=== PATIENT | female | born 1950 | race Caucasian/White ===

== ENCOUNTER 2016-09-06 12:35 | Inpatient (IN) | payer MEDICARE, OTHER ==
[2016-09-06] VITALS (8 sets, daily range): BP systolic 131–141; BP diastolic 69–75; PULSE 70–80; RESP 16–20; TEMP 96.7; O2SAT 94–98; Ht 160 cm; Wt 88.8 kg
[~2016-09-06] VITALS: Ht 160 cm; Wt 88.8 kg
[~2016-09-06 12:35] MED LIST: CITA20TA17 PO; DIPH25TA54 PO; ESOM20CA PO; HYDR-2164 PO; LEVO50TA72 PO; LOSA50TA17 PO; METF500T4 PO
--- OUTSIDE RECORDS SUMMARY | 2016-09-06 12:39 | XMS REPORT | Referral Summary ---
Author Author [facility] [place], [facility] Organization [facility] Address Unknown Phone Unavailable Care Team Providers Care Orthotic/Prosthetic Practitioner Name Role Phone Arturo Linda Primary Care Physician [phone] Encounter VC Date(s): 10/06/15 - 10/06/15 [facility] [place] [address] [place] [address]- Discharge Diagnosis: Benign essential hypertension Discharge Diagnosis: Hypothyroidism Discharge Diagnosis: Gastroesophageal reflux disease Discharge Diagnosis: Abdominal pain Discharge Diagnosis: Type 2 diabetes mellitus Discharge Disposition: 01-Home or Self Care Attending Physician: Elder Linda MD Admitting Physician: Elder Linda MD Vital Signs Most recent to 1 oldest [Reference Range]: Temperature Tympanic 36.4 degC [36.6-38.1 degC] *LOW* (10/06/15 8:54 AM) Peripheral Pulse 76 bpm Rate [60-100 bpm] (10/06/15 8:54 AM) Respiratory Rate 16 br/min [14-20 br/min] (10/06/15 8:54 AM) Blood Pressure 130/84 mmHg [90-140/60-90 mmHg] (10/06/15 8:54 AM) Problem List Condition Effective Dates Status Health Status Informant Anxiety state Active (finding)(Confirmed) Anxiety(Confirmed) Resolved Appendectomy(Confirm Resolved ed) Benign essential Active hypertension (disorder)(Confirmed ) Left Breast Biopsy- Resolved benign(Confirmed) Cardiac Resolved catheterization- normal(Confirmed) Chicken Resolved pox(Confirmed) Colonoscopy- Resolved normal(Confirmed) Depression(Confirmed Resolved ) Gastro esophageal Resolved reflux(Confirmed) Gastroesophageal Active reflux disease (disorder)(Confirmed ) GERD Resolved (gastroesophageal reflux disease)(Confirmed) High Resolved cholesterol(Confirme d) Hypertension(Confirm Resolved ed) Hypothyroidism Active (disorder)(Confirmed ) Hypothyroidism(Confi Resolved rmed) Fatty Infiltration Resolved of liver(Confirmed) Lumpectomy left Resolved breast(Confirmed) Macular Resolved degeneration(Confirm ed) Uterine 2000 Active cancer(Confirmed) Mild obstructive Active sleep apnea(Confirmed) ADRIANO BSO - Total Resolved abdominal hysterectomy and bilateral salpingo-oophorectom y(Confirmed) Tonsillectomy(Confir Resolved med) Allergies, Adverse Reactions, Alerts Substance Reaction Severity Status acetaminophen vomiting Active celecoxib Active diazepam Active HYDROcodone vomiting Active penicillin Active tetracycline Active Medications citalopram 20 mg oral tablet See Instructions, TAKE 1 TABLET DAILY Fax to [facility], # 90 tabs, 1 Refill(s ), [facility], TAKE 1 TABLET DAILY; Fax to [facility] Start Date: 09/16/15 Status: Ordered [facility] oral capsule caps, Oral, Daily, 0 Refill(s) Start Date: 10/06/15 Status: Ordered free style lite strips free style lite strips, See Instructions, check Blood sugars per doctor's orders. Fax to [facility] Dx: 250.00, # 1 boxes, 0 Refill(s) Start Date: 01/31/15 Status: Ordered glimepiride 4 mg oral tablet 4 mg 1 tabs, Oral, Daily, # 30 tabs, 4 Refill(s), [facility] , 1 tabs Oral Daily Start Date: 10/06/15 Status: Ordered hydrochlorothiazide 25 mg oral tablet 25 mg 1 tabs, Oral, Daily, # 90 tabs, 0 Refill(s), [facility]: [facility] , 1 tabs Oral Daily Start Date: 08/26/15 Status: Ordered levothyroxine 50 mcg (0.05 mg) oral tablet 50 mcg 1 tabs, Oral, Daily, # 90 tabs, 0 Refill(s), [facility], 1 tabs Oral Daily Start Date: 08/26/15 Status: Ordered losartan 50 mg oral tablet 50 mg 1 tabs, Oral, Daily, Fax to [facility], # 90 tabs, 0 Refill(s) Start Date: 07/08/15 Status: Ordered NexIUM 20 mg oral delayed release capsule 20 mg 1 caps, Oral, BID, # 60 caps, 3 Refill(s) Start Date: 08/20/15 Status: Ordered ZyrTEC 10 mg, Oral, Daily, 0 Refill(s) Start Date: 04/02/14 Status: Ordered Results Chemistry Most recent to 1 oldest [Reference Range]: Sodium Lvl [135-144 140 mEq/L mEq/L] (10/06/15 9:35 AM) Potassium Lvl 4.3 mEq/L [3.5-5.2 mEq/L] (10/06/15 9:35 AM) Chloride [99-111 104 mEq/L mEq/L] (10/06/15 9:35 AM) CO2 [22-31 mEq/L] 29 mEq/L (10/06/15 9:35 AM) AGAP [3-20] 7 (10/06/15 9:35 AM) BUN [10-20 mg/dL] 19 mg/dL (10/06/15 9:35 AM) Glucose Lvl [70-99 161 mg/dL mg/dL] *HI* (10/06/15 9:35 AM) Creatinine Lvl 1.01 mg/dL [0.57-1.11 mg/dL] (10/06/15 9:35 AM) eGFR [>60 mL/min] 55 mL/min 1 *ABN* (10/06/15 9:35 AM) Calcium Lvl 9.3 mg/dL [8.9-10.5 mg/dL] (10/06/15 9:35 AM) Albumin Lvl [3.4-4.8 4.4 gm/dL gm/dL] (10/06/15 9:35 AM) Total Protein 6.5 gm/dL [6.2-8.1 gm/dL] (10/06/15 9:35 AM) Globulin [1.8-4.0 2.1 gm/dL gm/dL] (10/06/15 9:35 AM) ALT [0-55 U/L] 58 U/L *HI* (10/06/15 9:35 AM) AST [5-34 U/L] 35 U/L *HI* (10/06/15 9:35 AM) Alk Phos [40-150 95 U/L U/L] (10/06/15 9:35 AM) Bili Total [0.2-1.2 0.6 mg/dL mg/dL] (10/06/15 9:35 AM) Chol [0-199 mg/dL] 204 mg/dL *HI* (10/06/15 9:35 AM) Trig [0-149 mg/dL] 213 mg/dL *HI* (10/06/15 9:35 AM) HDL [40-84 mg/dL] 36 mg/dL *LOW* (10/06/15 9:35 AM) LDL [0-130 mg/dL] 125 mg/dL (10/06/15 9:35 AM) VLDL Cholesterol 43 mg/dL [0-28 mg/dL] *HI* (10/06/15 9:35 AM) Cardiac Risk 5.7 [0.0-5.0] *HI* (10/06/15 9:35 AM) TSH with Reflex Free 2.05 T4 [0.35-4.94] (10/06/15 9:35 AM) Hgb A1c [4.1-5.6 %] 6.8 % *HI* (10/06/15 9:35 AM) eAvg Glucose 148.5 mg/dL (10/06/15 9:35 AM) 1Result Comment: Multiply eGFR results by 1.21 for race. Immunizations No data available for this section Procedures Procedure Date Related Diagnosis Body Site Colonoscopic polypectomy1 01/21/14 Biopsy of breast 06/20/01 ADRIANO BSO - Total abdominal hysterectomy and 1999 bilateral salpingo-oophorectomy2 Lumpectomy of Left breast, not ca 06/20/90 Appendectomy Cardiac catheterization Hysterectomy Tonsillectomy 1Tubular adenoma, minimal diverticulosis, father with colon cancer, repeat in 5 years 2uterine cancer Social History Social History Type Response Smoking Status Never smoker Assessment and Plan Extracted from: Title: Office Visit Note Author: Elder Linda MD Date: 10/06/15 Assessment/Plan Abdominal pain He remains somewhat unclear where this is coming from. It may well ultimately be an irritable bowel type problem. I am concerned that metformin may be contributing to some of her abdominal distress and loose bowels. We switched her to an extended release formula andthat hasn't seemed to make much difference. I've recommendeddiscontinuing metformin altogether and beginning glimepiride 4 mg by mouth every morning to see if that makes any difference in her abdominalcomplaints. She'llkeep me posted on how that'sworking Ordered: Comprehensive Metabolic Panel Office Visit Level 4 Est 26579 Benign essential hypertension Blood pressures well-controlled no change in current treatment is recommended. Ordered: Comprehensive Metabolic Panel Lipid Panel Office Visit Level 4 Est 19893 Gastroesophageal reflux disease Reflux seems to be controlled and not a part of her abdominal discomfort no change in current treatment is recommended. Ordered: Office Visit Level 4 Est 10795 Hypothyroidism It's been a year since her last TSH one is ordered today. Ordered: Office Visit Level 4 Est 37847 TSH with Reflex Free T4 Type 2 diabetes mellitus, Type 2 diabetes mellitus without complications I'm making changes as outlined above with discontinuing metformin and beginning the [place]. Warned about hypoglycemia with this medication change. Laboratory studies ordered. She'll keep me posted on how she's doing. Three-month follow-up encouraged. Report card reviewed and provided today. Ordered: Comprehensive Metabolic Panel Hemoglobin A1c Lipid Panel Office Visit Level 4 Est 83787 Orders: glimepiride, 4 mg 1 tabs, Oral, Daily, # 30 tabs, 4 Refill(s), [facility], 1 tabs Oral Daily
--- OUTSIDE RECORDS SUMMARY | 2016-09-06 12:39 | XMS REPORT | Referral Summary ---
Author Author [facility] [place], [facility] Organization [facility] Address Unknown Phone Unavailable Care Team Providers Care Program Director Cable Television Name Role Phone Arturo Linda Primary Care Physician [phone] Encounter Date(s): 01/07/16 - 01/07/16 [facility] [place], [address] [place] [address]- Discharge Diagnosis: Benign essential hypertension Discharge Diagnosis: Gastroesophageal reflux disease Discharge Diagnosis: Diabetes mellitus, type 2 Discharge Diagnosis: Anxiety state (finding) Discharge Diagnosis: Hypothyroidism Discharge Disposition: 01-Home or Self Care Attending Physician: Elder Linda MD Admitting Physician: Elder Linda MD Vital Signs Most recent to 1 oldest [Reference Range]: Temperature Tympanic 36.6 degC [36.6-38.1 degC] (01/07/16 8:29 AM) Peripheral Pulse 68 bpm Rate [60-100 bpm] (01/07/16 8:29 AM) Respiratory Rate 16 br/min [14-20 br/min] (01/07/16 8:29 AM) Blood Pressure 116/76 mmHg [90-140/60-90 mmHg] (01/07/16 8:29 AM) Problem List Condition Effective Dates Status [...] vomiting Active penicillin Active tetracycline Active Medications Bentyl 20 mg oral tablet 20 mg 1 tabs, Oral, BID, # 180 tabs, 1 Refill(s), [facility] , 1 tabs Oral BID Start Date: 12/02/15 Status: Ordered citalopram 20 mg oral tablet See Instructions, TAKE 1 TABLET DAILY Fax to [facility], # 90 tabs, 1 Refill(s ), [facility], TAKE 1 TABLET DAILY; Fax to [facility] Start Date: 09/16/15 Status: Ordered [facility] oral capsule caps, Oral, Daily, 0 Refill(s) [...] 1 tabs, Oral, Daily, # 90 tabs, 1 Refill(s), [facility] , 1 tabs Oral Daily Start Date: 12/05/15 Status: Ordered levothyroxine 50 mcg (0.05 mg) oral tablet 50 mcg 1 tabs, Oral, Daily, # 90 tabs, 3 Refill(s), [facility]: [facility], 1 tabs Oral Daily Start Date: 12/12/15 Status: Ordered losartan 50 mg oral tablet 50 mg 1 tabs, Oral, Daily, # 90 tabs, 2 Refill(s), [facility]: [facility] , 1 tabs Oral Daily Start Date: 10/07/15 Status: Ordered NexIUM 20 mg oral delayed release capsule 20 mg 1 caps, Oral, BID, # 60 caps, 3 Refill(s) Start Date: 08/20/15 Status: Ordered ZyrTEC 10 mg, Oral, Daily, 0 Refill(s) Start Date: 04/02/14 Status: Ordered Results Chemistry Most recent to 1 oldest [Reference Range]: Hgb A1c [4.1-5.6 %] 7.1 % *HI* (01/07/16 9:00 AM) eAvg Glucose 157.1 mg/dL (01/07/16 9:00 AM) Immunizations Vaccine Date Refusal Reason tetanus/diphth/pertuss (Tdap) adult/adol 06/20/10 influenza virus vaccine, inactivated 03/20/15 Procedures Procedure Date Related Diagnosis Body Site Esophagogastroduodenoscopy and biopsy1 10/03/15 Colonoscopic polypectomy2 01/21/14 Biopsy of breast 06/20/01 ADRIANO BSO - Total abdominal hysterectomy and 1999 bilateral salpingo-oophorectomy3 Lumpectomy of Left breast, not ca 06/20/90 Appendectomy Cardiac catheterization Hysterectomy Tonsillectomy 1no cancer, no h pylori, no abnormality noted to explain pts pain. 2Tubular adenoma, minimal diverticulosis, father with colon cancer, repeat in 5 years 3uterine cancer Social History Social History Type Response Smoking Status Never smoker Assessment and Plan Extracted from: Title: Office Visit Note Author: Elder Linda MD Date: 01/07/16 Assessment/Plan 1.Benign essential hypertension Blood pressures well-controlled. Medications and treatments reviewed no changes are recommended at this time. Report card reviewed and provided. Follow-up in 6 months. Ordered: Office Visit Level 4 Est 38319 2.Gastroesophageal reflux disease Overall this seems to be improved with the treatments Dr. Drew is recommended. No changes are recommended at this time. Ordered: Office Visit Level 4 Est 18973 3.Diabetes mellitus, type 2 Sugars are running higher but she's not following her diet carefully. We discussed the importance of dietary control. Continue current medications for the time being we will check a hemoglobin A1c today. Will let her know what that shows. Plan 6 month follow-up unless further problems or concerns occur. Ordered: Hemoglobin A1c Office Visit Level 4 Est 75437 4.Anxiety state (finding) Discussed the importance of dealing with anxiety and a healthy way as opposed to eatingas a way oftreating her anxiety. Ordered: Office Visit Level 4 Est 03309 5.Hypothyroidism Chronic stable most recent TSH 3 months ago and was doing well. No change in current treatment. Ordered: Office Visit Level 4 Est 98243
--- OUTSIDE RECORDS SUMMARY | 2016-09-06 12:40 | XMS REPORT | Referral Summary ---
Author Organization Unknown Address Unknown Phone Unavailable Care Team Providers Care Ordnance Corps Officer Name Role Phone Cordelia Ramey Primary Care Physician [phone] Encounter VC Date(s): 08/01/14 - 08/01/14 [facility] [place] [address] [facility] [address] [place], [place] [address] Discharge Diagnosis: Mild obstructive sleep apnea Discharge Disposition: Home or Self Care Attending Physician: Kyara Wilkerson Admitting Physician: Kyara Wilkerson Vital Signs Most recent to 1 oldest [Reference Range]: Peripheral Pulse 75 bpm Rate [60-100 bpm] (08/01/14 8:49 AM) Blood Pressure 118/68 mmHg [90-140/60-90 mmHg] (08/01/14 8:49 AM) Most recent to 1 oldest [Reference Range]: SpO2 94 % (08/01/14 8:49 AM) Problem List Condition Effective Dates Status Health Status Informant Anxiety(Confirmed) Resolved Anxiety state Active (finding)(Confirmed) Appendectomy(Confirm Resolved ed) Benign essential Active hypertension [...] left Resolved breast(Confirmed) Macular Resolved degeneration(Confirm ed) Mild obstructive Active sleep apnea(Confirmed) ADRIANO BSO - Total Resolved abdominal hysterectomy and bilateral salpingo-oophorectom y(Confirmed) Tonsillectomy(Confir Resolved med) Allergies, Adverse Reactions, Alerts Substance Reaction Severity Status acetaminophen vomiting Active celecoxib Active diazepam Active HYDROcodone vomiting Active penicillin Active tetracycline Active Medications citalopram 20 mg oral tablet 1 tabs, Oral, Daily, # 90 tabs, 1 Refill(s), 1 tabs Oral Daily Start Date: 04/02/14 Status: Ordered hydrochlorothiazide 25 mg oral tablet 1 tabs, Oral, Daily, # 90 tabs, 0 Refill(s) Start Date: 07/23/14 Status: Ordered levothyroxine 50 mcg (0.05 mg) oral tablet 1 tabs, Oral, Daily, # 90 tabs, 0 Refill(s) Start Date: 07/23/14 Status: Ordered losartan 50 mg oral tablet 1 tabs, Oral, Daily, Fax to [facility], # 90 tabs, 0 Refill(s) Special Instructions: Fax to [facility] Start Date: 06/17/14 Status: Ordered ranitidine 150 mg oral capsule 1 caps, Oral, Daily, # 90 caps, 1 Refill(s) Start Date: 06/10/14 Status: Ordered Xanax 0.5 mg oral tablet 1 tabs, Oral, TID, as needed for anxiety, 0 Refill(s) Start Date: 04/02/14 Status: Ordered ZyrTEC 10 mg, Oral, Daily, 0 Refill(s) Start Date: 04/02/14 Status: Ordered Results No data available for this section Immunizations No data available for this section Procedures Procedure Date Related Diagnosis Body Site Colonoscopic polypectomy1 01/21/14 Biopsy of breast 06/20/01 Lumpectomy of Left breast, not ca 06/20/90 Appendectomy Hysterectomy Tonsillectomy 1Tubular adenoma, minimal diverticulosis, father with colon cancer, repeat in 5 years Social History Social History Type Response Smoking Status Never smoker Assessment and Plan Extracted from: Title: Office Visit Note Author: Kyara Wilkerson Date: 08/01/14 Assessment/Plan 1.Mild obstructive sleep apnea - Adequate treatment with CPAP symptomatically and per objective download at current pressure withexcellent adherence to therapy. Continue CPAP with all sleep at 10cm. Medicare rules discussed with her today,. She does meet Medicare requirements for ongoing treatment. She will choose a [employer] company today. Order for supplies to be sent to them. Work with RT in regard to her mask today. -CPAP download reviewed with the patient and patient is complying with and benefitting from treatment. -Avoid driving , partaking in hazardous activities, or operating heavy machinery if drowsy. -Continue appropriate cleaning of the machine/humidifier and update of all supplies including mask , tubing , and filters . -Return for follow-up in 1 year . Return/call sooner if any problems arise in the meantime. Extracted from: Title: Rescheduled Appointment Author: Diana Thayer Date: 03/05/14 Called and left a message that her appointment with Dr. Cervantes on 04/25 at 1:30 had been rescheduled to Kyara on 05/02 at 2:00pm. Asked patient to call if new date and time would not work with her schedule. Apologized for any inconvenience.
--- OUTSIDE RECORDS SUMMARY | 2016-09-06 12:40 | XMS REPORT | Referral Summary ---
Author Author [facility] Organization [facility] Address Unknown Phone Unavailable Care Team Providers Care Gravel Truck Driver Name Role Phone Arturo Linda Primary Care Physician [phone] Encounter [facility] [id number] Date(s): 08/14/15 - 08/14/15 [facility] [place] [address] [place], [place] [address] Discharge Diagnosis: Mild obstructive sleep apnea Discharge Disposition: 01-Home or Self Care Attending Physician: Kyara Wilkerson Admitting Physician: Kyara Wilkerson Vital Signs Most recent to 1 oldest [Reference Range]: Peripheral Pulse 74 bpm Rate [60-100 bpm] (08/14/15 10:52 AM) Blood Pressure 134/78 mmHg [90-140/60-90 mmHg] (08/14/15 10:52 AM) SpO2 95 % (08/14/15 10:52 AM) Problem List Condition Effective Dates Status [...] Instructions, TAKE 1 TABLET DAILY Fax to [facility], # 90 tabs, 0 Refill(s ), TAKE 1 TABLET DAILY Start Date: 06/16/15 Status: Ordered free style lite strips free style lite strips, See Instructions, check Blood sugars per doctor's orders. Fax to [facility] Dx: 250.00, # 1 boxes, 0 Refill(s) Start Date: 01/31/15 Status: Ordered hydrochlorothiazide 25 mg oral tablet 25 mg 1 tabs, Oral, Daily, # 90 tabs, 0 Refill(s) Start Date: 05/19/15 Status: Ordered levothyroxine 50 mcg (0.05 mg) oral tablet 50 mcg 1 tabs, Oral, Daily, # 90 tabs, 0 Refill(s) Start Date: 05/19/15 Status: Ordered losartan 50 mg oral tablet 50 mg 1 tabs, Oral, Daily, Fax to [facility], # 90 tabs, 0 Refill(s) Start Date: 07/08/15 Status: Ordered metFORMIN 500 mg oral tablet 500 mg 1 tabs, Oral, BID, # 180 tabs, 1 Refill(s) Start Date: 02/14/15 Status: Ordered ranitidine 150 mg oral capsule 150 mg 1 caps, Oral, Daily, # 90 caps, 1 Refill(s) Start Date: 03/26/15 Status: Ordered ZyrTEC 10 mg, Oral, Daily, [...] Office Visit Note Author: Kyara Wilkerson Date: 08/14/15 Assessment/Plan Mild obstructive sleep apnea - Adequate treatment with CPAP symptomatically and objectivelyat current pressure withexcellent adherence to therapy. Continue CPAP with all sleep at 10cm. Order to [facility] for supplies as needed. -CPAP download reviewed with the patient and [...]
--- OUTSIDE RECORDS SUMMARY | 2016-09-06 12:40 | XMS REPORT | Referral Summary ---
Author Author [facility] [place], [facility] Organization [facility] Address Unknown Phone Unavailable Care Team Providers Care Movie Actor Name Role Phone Arturo Linda Primary Care Physician [phone] Encounter VC Date(s): 08/20/15 - 08/20/15 [facility] [place] [address] [place] [address]- Discharge Diagnosis: Gastroesophageal reflux disease Discharge Diagnosis: Hypothyroidism Discharge Diagnosis: Epigastric abdominal pain Discharge Diagnosis: Benign essential hypertension Discharge Diagnosis: Type 2 diabetes mellitus Discharge Disposition: 01-Home or Self Care Attending Physician: Elder Linda MD Admitting Physician: Elder Linda MD Vital Signs Most recent to 1 oldest [Reference Range]: Temperature Tympanic 36.2 degC [36.6-38.1 degC] *LOW* (08/20/15 9:30 AM) Peripheral Pulse 72 bpm Rate [60-100 bpm] (08/20/15 9:30 AM) Respiratory Rate 18 br/min [14-20 br/min] (08/20/15 9:30 AM) Blood Pressure 134/82 mmHg [90-140/60-90 mmHg] (08/20/15 9:30 AM) Problem List Condition Effective Dates Status [...] DAILY Fax to [facility], # 90 tabs, 0 Refill(s ), TAKE 1 TABLET DAILY Start Date: 06/16/15 Status: Ordered free style lite strips free style lite strips, See Instructions, check Blood sugars per doctor's orders. Fax to [facility] Dx: 250.00, # 1 boxes, 0 Refill(s) Start Date: 01/31/15 Status: Ordered Glucophage XR 500 mg oral tablet, extended release 500 mg 1 tabs, Oral, BID, # 60 tabs, 6 Refill(s) Start Date: 08/20/15 Status: Ordered hydrochlorothiazide 25 mg oral tablet [...] 3 Refill(s) Start Date: 08/20/15 Status: Ordered NexIUM OTC mg, Oral, Daily, 0 Refill(s) Start Date: 08/20/15 Status: Ordered ZyrTEC 10 mg, Oral, Daily, 0 Refill(s) Start Date: 04/02/14 Status: Ordered Results Chemistry Most recent to 1 oldest [Reference Range]: Hgb A1c [4.1-5.6 %] 7.1 % *HI* (08/20/15 10:30 AM) eAvg Glucose 157.1 mg/dL (08/20/15 10:30 AM) Immunizations No data available for this section [...] Visit Note Author: Elder Linda MD Date: 08/20/15 Assessment/Plan Benign essential hypertension Blood pressure appears to be adequately controlled no change in current treatment recommended. Ordered: [facility] 7 Day Disch 88657 Epigastric abdominal pain I've asked her to increase her Nexium to 20 mg twice daily. I will schedule her an appointment to see Dr. Vargas consider EGD. She'll keep me posted on how things are going over the next few weeks. Ordered: [facility] 7 Day Disch 87911 Gastroesophageal reflux disease Increase Nexium as mentioned above. EGD recommended. Ordered: [facility] 7 Day Disch 95075 Hypothyroidism Chronic stable no change in current treatment. Type 2 diabetes mellitus, Type 2 diabetes mellitus without complications I'm going tochange her to metformin extended vsidyos550 mgtwice daily. If no improvement in GI symptoms may want to consider discontinuing metformin in trying a different medication for her. I've recommended a follow- up in one month to see how she's doing. Ordered: Hemoglobin A1c [facility] 7 Day Disch [id number] Orders: esomeprazole, 20 mg 1 caps, Oral, BID, # 60 caps, 3 Refill(s) metFORMIN, 500 mg 1 tabs, Oral, BID, # 60 tabs, 6 Refill(s)
--- OUTSIDE RECORDS SUMMARY | 2016-09-06 12:40 | XMS REPORT | Referral Summary ---
Author Author [facility], [facility] Organization [facility] Address Unknown Phone Unavailable Care Team Providers Care Benefits Advisor Name Role Phone Arturo Linda Primary Care Physician [phone] Encounter VC Date(s): 08/02/16 - 08/02/16 [facility] [address] [place] [id number]- Discharge Diagnosis: Benign essential hypertension Discharge Diagnosis: Type 2 diabetes mellitus Discharge Diagnosis: Hypothyroidism (disorder) Discharge Diagnosis: Gastroesophageal reflux disease Discharge Disposition: 01-Home or Self Care Attending Physician: Elder Linda MD Admitting Physician: Elder Linda MD Vital Signs Most recent to 1 oldest [Reference Range]: Temperature Tympanic 37.1 degC [36.6-38.1 degC] (08/02/16 8:29 AM) Peripheral Pulse 72 bpm Rate [60-100 bpm] (08/02/16 8:29 AM) Respiratory Rate 16 br/min [14-20 br/min] (08/02/16 8:29 AM) Blood Pressure 130/86 mmHg [90-140/60-90 mmHg] (08/02/16 8:29 AM) Problem List Condition Effective Dates [...] and bilateral salpingo-oophorectom y(Confirmed) Tonsillectomy(Confir Resolved med) Type 2 diabetes Active mellitus(Confirmed) Allergies, Adverse Reactions, Alerts Substance Reaction Severity [...] DAILY Fax to [facility], # 90 tabs, 3 Refill(s ), [facility], TAKE 1 TABLET DAILY; Fax to [facility] Start Date: 03/29/16 Status: Ordered [facility] oral capsule caps, Oral, Daily, 0 Refill(s) Start Date: 10/06/15 Status: Ordered free style lite strips free style lite strips, See Instructions, check Blood sugars per doctor's orders. Fax to [facility] Dx: 250.00, # 1 boxes, 0 Refill(s) Start Date: 01/31/15 Status: Ordered glimepiride 4 mg oral tablet 4 mg 1 tabs, Oral, Daily, # 90 tabs, 1 Refill(s), [facility] , 1 tabs Oral Daily Start Date: 03/15/16 Status: Ordered hydroCHLOROthiazide 25 mg oral tablet 25 mg 1 tabs, Oral, Daily, # 90 tabs, 1 Refill(s), [facility]: [facility] , 1 tabs Oral Daily Start Date: 06/25/16 Status: Ordered Januvia 100 mg oral tablet 100 mg 1 tabs, Oral, Daily, # 30 tabs, 0 Refill(s), samples given to patient (Rx ) Start Date: 08/02/16 Status: Ordered levothyroxine 50 mcg (0.05 mg) oral tablet 50 mcg 1 tabs, Oral, Daily, # 90 tabs, 3 Refill(s), [facility], 1 tabs Oral Daily Start Date: 12/12/15 Status: Ordered losartan 50 mg oral tablet 50 mg 1 tabs, Oral, Daily, # 90 tabs, 2 Refill(s), [facility] , 1 tabs Oral Daily Start Date: 07/28/16 Status: Ordered NexIUM 20 mg oral delayed release capsule 20 mg 1 caps, Oral, BID, # 90 tabs, 1 Refill(s), [facility], 1 caps Oral BID Start Date: 07/06/16 Status: Ordered ZyrTEC 10 mg, Oral, Daily, 0 Refill(s) Start Date: 04/02/14 Status: Ordered Results No data available for this section Immunizations Given and Recorded Vaccine Date Status Refusal Reason tetanus/diphth/pertuss (Tdap) adult/adol 06/20/10 Recorded influenza virus vaccine, inactivated 04/14/16 Recorded influenza virus vaccine, inactivated 03/20/15 Recorded Procedures Procedure Date Related Diagnosis Body Site [...] Visit Note Author: Elder Linda MD Date: 08/02/16 Assessment/Plan 1.Benign essential hypertension Blood pressure appears to be reasonably well-controlled no change in current treatment is recommended. Recent laboratory studies reviewed. Report card reviewed and provided. Follow-up in 3 months. 2.Gastroesophageal reflux disease Chronic stable no change in current treatment recommended. 3.Hypothyroidism (disorder) TSH in September of last year was normal no change in current dosage is recommended. Rechecklater this year. 4.Type 2 diabetes mellitus A1c is risen to 8.6. She is trying to follow diet and exercising regularly and taking her medications as instructed. We'll add [id number] mg daily. Samples were given for 3 weeks she'll let us knowhow the sugars are doing over the next few weeks. If they improve will call out a prescription is notfurther adjustments will need to be made. I encouraged her to continue to follow her diet carefully andcontinue with regular exercise. She 'll keep us posted on how things are going.
--- OUTSIDE RECORDS SUMMARY | 2016-09-06 12:40 | XMS REPORT | Referral Summary ---
Author Organization Unknown Address Unknown Phone Unavailable Care Team Providers Care Insurance Professional Name Role Phone Cordelia Ramey Primary Care Physician [phone] Encounter VC Date(s): 08/01/14 - [facility] [place] [address] [facility], [facility] [address] [place], [place] [address] Discharge Disposition: Home or Self Care Attending Physician: Adriano Ramey MD Vital Signs No data available for this section Problem List Condition Effective Dates Status Health [...] tablet 1 tabs, Oral, Daily, Fax to [place], # 90 tabs, 0 Refill(s) Special Instructions: Fax to [place] Start Date: 06/17/14 Status: Ordered ranitidine 150 [...] Smoking Status Never smoker Assessment and Plan No data available for this section
--- OUTSIDE RECORDS SUMMARY | 2016-09-06 12:40 | XMS REPORT | Referral Summary ---
Author Author [facility], [facility] Organization [facility] Address Unknown Phone Unavailable Care Team Providers Care Parole Or Probation Officer Name Role Phone Arturo Linda Primary Care Physician [phone] Encounter VC Date(s): 02/14/15 - 02/14/15 [facility] [address] [place] [address] [place] [id number]- Discharge Diagnosis: Hypothyroidism Discharge Diagnosis: Diabetes Discharge Diagnosis: Essential hypertension Discharge Disposition: 01-Home or Self Care Attending Physician: Adriano Ramey MD Admitting Physician: Adriano Ramey MD Vital Signs Most recent to 1 oldest [Reference Range]: Temperature Tympanic 37.0 degC [36.6-38.1 degC] (02/14/15 2:10 PM) Peripheral Pulse 89 bpm Rate [60-100 bpm] (02/14/15 2:10 PM) Respiratory Rate 17 br/min [14-20 br/min] (02/14/15 2:10 PM) Blood Pressure 128/68 mmHg [90-140/60-90 mmHg] (02/14/15 2:10 PM) SpO2 94 % (02/14/15 2:10 PM) Problem List Condition Effective Dates Status Health [...] 90 tabs, 0 Refill(s), [facility]: [facility] , 1 tabs Oral Daily Start Date: [...] smoker Assessment and Plan Extracted from: Title: Ambulatory Patient Education Author: Adriano Ramey MD Date: Family Medicine Diabetes and Exercise Exercising regularly is important. It is not just about losing weight. It has many health benefits, such as: Improving your overall fitness, flexibility, and endurance. Increasing your bone density. Helping with weight control. Decreasing your body fat. Increasing your muscle strength. Reducing stress and tension. Improving your overall health. People with diabetes who exercise gain additional benefits because exercise: Reduces appetite. Improves the body's use of blood sugar (glucose). Helps lower or control blood glucose. Decreases blood pressure. Helps control blood lipids (such as cholesterol and triglycerides). Improves the body's use of the hormone insulin by: Increasing the body's insulin sensitivity. Reducing the body's insulin needs. Decreases the risk for heart disease because exercising: Lowers cholesterol and triglycerides levels. Increases the levels of good cholesterol (such as high-density lipoproteins [HDL]) in the body. Lowers blood glucose levels. YOUR ACTIVITY PLAN Choose an activity that you enjoy and set realistic goals. Your health care provider or clinical unit educator can help you make an activity plan that works for you. You can break activities into 2 or 3 sessions throughout the day. Doing so is as good as one long session. Exercise ideas include: Taking the dog for a walk. Taking the stairs instead of the elevator. Dancing to your favorite song. Doing your favorite exercise with a friend. RECOMMENDATIONS FOR EXERCISING WITH TYPE 1 OR TYPE 2 DIABETES Check your blood glucose before exercising. If blood glucose levels are greater than 240 mg/dL, check for urine ketones. Do not exercise if ketones are present. Avoid injecting insulin into areas of the body that are going to be exercised. For example, avoid injecting insulin into: The arms when playing tennis. The legs when jogging. Keep a record of: Food intake before and after you exercise. Expected peak times of insulin action. Blood glucose levels before and after you exercise. The type and amount of exercise you have done. Review your records with your health care provider. Your health care provider will help you to develop guidelines for adjusting food intake and insulin amounts before and after exercising. If you take insulin or oral hypoglycemic agents, watch for signs and symptoms of hypoglycemia. They include: Dizziness. Shaking. Sweating. Chills. Confusion. Drink plenty of water while you exercise to prevent dehydration or heat stroke. Body water is lost during exercise and must be replaced. Talk to your health care provider before starting an exercise program to make sure it is safe for you. Remember, almost any type of activity is better than none. Document Released: 08/26/2004 Document Revised: 02/06/2014 Document Reviewed: Exit[employer] Patient Information 2015 [employer]. This information is not intended to replace advice given to you by your health care provider. Make sure you discuss any questions you have with your health care provider. Follow Up With: Where: When: Adriano Ramey [address] [place] [address] Drive; Via [facility] [place] [id number] [employer] ([employer] In 3 months 05/17/2015 Comments: Extracted from: Title: Office Visit Note Author: Adriano Ramey MD Date: 02/14/15 Assessment/Plan Diabetes She will be started on metformin 500 mg daily for one to 2 weeks and then increase this to twice daily if she is not having side effects. Basic metabolic profile will be rechecked later. Ordered: Basic Metabolic Panel Essential hypertension She will continue her same medication. This remains well controlled. Hypothyroidism She will continue her same medication. Orders: metFORMIN, 500 mg 1 tabs, Oral, BID, # 180 tabs, 1 Refill(s)
--- OUTSIDE RECORDS SUMMARY | 2016-09-06 12:40 | XMS REPORT | Continuity of Care Document ---
Author Author [facility] Organization [facility] Address Unknown Phone Unavailable Allergies Medications Problems Procedures Results Encounters ACCT No. Visit Date/Time Discharge Status Pt. Type Provider Facility Loc./Unit Complaint [id number] 09/04/2013 13:07:00 09/04/2013 23 :59:59 CLS Outpatient
--- OUTSIDE RECORDS SUMMARY | 2016-09-06 12:40 | XMS REPORT | Referral Summary ---
Author Author [facility], [facility] Organization [facility] Address Unknown Phone Unavailable Care Team Providers Care Military Technician Name Role Phone Arturo Linda Primary Care Physician [phone] Encounter VC Date(s): 09/10/15 - 09/10/15 [facility], [facility] [address] [place] [address] [place] [id number] Discharge Diagnosis: History of peptic ulcer Discharge Diagnosis: Epigastric pain Discharge Disposition: -Home or Self Care Attending Physician: Shlomo Ghotra MD Admitting Physician: Shlomo Ghotra MD Referring Physician: Elder Linda MD Vital Signs Most recent to 1 oldest [Reference Range]: Temperature Tympanic 36.6 degC [36.6-38.1 degC] (09/10/15 1:54 PM) Blood Pressure 138/88 mmHg [90-140/60-90 mmHg] (09/10/15 1:54 PM) Problem List Condition Effective Dates Status [...] vomiting Active penicillin Active tetracycline Active Medications Carafate 1 g oral tablet 1 g 1 tabs, Oral, QIDACHS, # 120 tabs, 0 Refill(s), [facility], 1 tabs Oral QIDACHS Start Date: 09/03/15 Status: Ordered citalopram 20 mg oral tablet [...] mg, Oral, Daily, 0 Refill(s) Start Date: 10/14/14 Status: Ordered Results No data available for [...] Extracted from: Title: Office Visit Note Author: Shlomo Ghotra MD Date: 09/10/15 Assessment/Plan 1.Epigastric pain Ordered: Office Visit Level 4 Est 79924 2.History of peptic ulcer Ordered: Office Visit Level 4 Est 70083 Plan: Hepatobiliary Scan to Rule Out Ejection Fraction, If Negative Proceed with CT Scan of Abdomen and Pelvis, If Negative Proceed with Esophagogastroduodenoscopy for Further Evaluation. I did review the patient's chart including office note performed by her PCP for August 20, 2015. Reviewed a prior colonoscopy report performed by myself from January 2014 that was within normal limitswith the exception of a polyp noted within the ascending colonand at 60 cm. Patient was found to have single adenomatous colon polypand repeat colonoscopy recommended at 10 year interval. Reviewed ER notes from August 19, 2015. Reviewed prior abdominal ultrasoundthat was found to be essentially within normal limits from August 19, 2015. Reviewed stress test from August 18, 2015that was found to be within normal limits. I informed the patientthat at this point time I did not have a good explanation for her abdominal pain. The factthat her pain is brought on after eating is somewhat suggestive ofpeptic ulcer disease as well as that of a biliary etiology. I informed the patient that I would like to proceed with further evaluation initially by obtaining ahepatobiliary scan with an ejection fraction. If positive proceed with laparoscopic cholecystectomy. If negative would recommend proceeding with CT scan of her abdomen pelvisfor further evaluationof her abdominal pain that extends into herlower abdomen. If CT scan is found to be negativewould then recommend proceeding withesophagogastroduodenoscopy if she continues to have ongoingsymptomatology. Risk of endoscopy was discussed with the patient. Risks include but are not inclusive of bleeding and/or perforation requiring surgery. Patient understood and agreed with proposed algorithm/plan as stated above
--- OUTSIDE RECORDS SUMMARY | 2016-09-06 12:40 | XMS REPORT | Continuity of Care Document ---
Author Author Tanvir JAMES, FACP, Adriano [facility] Address [address] [place] [address] Phone Care Team Providers Care Die Maker Name Role Phone Nishant Martinez PP Unavailable Payers Payer name Insurance type Covered republican ID Authorization(s) Unknown Problems Condition Effective Dates (start - stop) Clinical Status Hypertension, Benign - *Chronic Hypothyroidism - *Chronic GERD - *Chronic Sleep apnea - *Chronic Diabetes Mellitus Type 2, Uncomplicated - *Chronic Hypercholesterolemia - *Chronic Depression - *Chronic Obesity - *Chronic Hypertension, Benign - *Chronic Hypothyroidism - *Chronic Depression - *Chronic GERD - *Chronic Fatty infiltration of liver - *Chronic Anxiety - Episodic Hypertension, Benign - *Chronic Hypothyroidism - *Chronic Depression - *Chronic GERD - *Chronic Anxiety - *Chronic Hypertension, Benign - Chronic Hypothyroidism - Chronic Depression - Chronic GERD - Chronic Anxiety - Chronic OTHER ABNORMAL GLUCOSE - Type 2 diabetes mellitus - New onset Hypertriglyceridemia - New onset Abnormal blood sugar - *Acute HYPOTHYROIDISM NOS - PURE HYPERCHOLESTEROLEM - PANIC DIS W/O AGORPHOBIA - 311 - DEPRESSIVE DISORDER NEC - BENIGN HYPERTENSION - ESOPHAGEAL REFLUX - Mass of jaw - *Acute Eczema - *Acute Family History Family Member Diagnosis Age At Onset Status Father (Unknown) COPD Yes Mother (Unknown) hip fracture Yes Father (Unknown) Cancer - colon Yes Mother (Unknown) CAD Yes Social History Social History Element Description Quantity Unknown Allergies, Adverse Reactions, Alerts Substance Reaction Severity Status PENICILLINS Unknown TETRACYCLINE Unknown HYDROCODONE BITARTRATE vomiting Unknown ACETAMINOPHEN vomiting Unknown DIAZEPAM Unknown CELECOXIB Unknown Medications Medication Instructions Dosage Effective Dates (start - stop) Status Zyrtec 10 mg tablet take 0.5 Tablet (5MG) by oral route every day 5 MG Jul - Active Probiotic Colon Care 1.5 billion cell capsule Take 1 capsule po every day - Active use as directed - Active Xanax 0.5 mg tablet take 1 tablet (0.5MG) by oral route 3 times every day prn - Active ranitidine 150 mg tablet take 1 tablet (150MG) by oral route 2 times every day 150 MG - Active Contour Next Strips Check blood sugars fasting and 2 hours after meals once a week-DX: 250.02 - Active Microlet Lancet Check blood sugars fasting and 2 hours after meals once a week -DX 250.02 - Active Right DX Mammo with Ultrasound if needed DX: 793.80 - Active levothyroxine 50 mcg tablet Take 1 tablet by mouth every day. - Active hydrochlorothiazide 25 mg tablet Take 1 tablet by mouth every day. 2012 - Active FreeStyle Lite Meter kit check blood sugar fasting and two hours after meals on tuesday DX:250.00 - Active FreeStyle Lite Strips check blood sugar fasting and two hours after meals on tuesday DX:250.00 - Active Lancets,Ultra Thin Lancets to go with freestyle lite lancing device-check blood sugars fasting and two hours after meals on tuesday DX:250.00 2013 - Active losartan 50 mg tablet Take 1 tablet by mouth every day. - Active citalopram 20 mg tablet take 1 tablet (20MG) by oral route every day in the evening 20 MG - Active Immunizations Vaccine Date Status Comments Unknown Results Test Name Date and Time Measure Units Reference Range Abnormal Flag Comments Unknown Vital Signs Date / Time: Height Weight Pulse Rate Blood Pressure Temperature /13:08:00 64.00 in 183.00 lbs 64 /min 110/74 mm[Hg] 97.2 F Procedures Procedure Date Unknown Encounters Encounter Location Date Patient Visit [facility] Patient Visit [facility] Patient Visit [facility] Patient Visit [facility] Patient Visit [facility] Patient [facility] Patient Visit [facility] Patient Visit [facility] Patient Visit [facility] Patient Visit Conversion Patient Visit [facility] Advance Directives Directive Effective Date Unknown
--- OUTSIDE RECORDS SUMMARY | 2016-09-06 12:40 | XMS REPORT | Continuity of Care Document ---
Author Author [facility] Organization [facility] Address Unknown Phone Unavailable Care Team Providers Care Program Medical Director Name Role Phone RODY BARRAZA MD Primary Care Physician [phone] Insurance Providers Payer Name Policy Number Subscriber Name Relationship Prime Wps [id number] Elder Abebe Spouse Advance Directives Directive Response Recorded Date/Time Dr Garrison Resuscitation Status Full Code 01/18/14 2:40pm Problems No known problems or medical conditions. Medications Medication Dose Route Sig Days/Qty Instructions Order Date Discontinued Date Status Candesartan Cilexetil 8 Mg PO DAILY 07/15/09 09/18/10 Discontinued Hydrochlorothiazide 25 Mg PO DAILY 07/15/09 Active Levothyroxine Sodium 50 Mcg PO DAILY 07/15/09 Active Ranitidine Hcl 150 Mg PO DAILY 07/15/09 Active Cetirizine Hcl 5 Mg PO BEDTIME 07/15/09 09/18/10 Discontinued Metoprolol Tartrate 25 Mg PO DAILY 09/21/10 11/24/10 Discontinued Losartan Potassium 50 Mg PO DAILY 09/21/10 Active Nitroglycerin 0.4 Mg SL NEEDED 09/21/10 Active Diphenhydramine HCl 0.5 Tab PO NEEDED 01/18/14 Active Social History Social History Problem Response Recorded Date/Time Smoking Status Never smoker 01/21/2014 8:09am Chewing Tobacco Status No 01/21/2014 8:09am Hx Substance Use No 01/21/2014 8:09am Hx Alcohol Use No 01/21/2014 8:09am Has the pt used tobacco in the last 12 months No 01/21/2014 8:09am Hospital Discharge Instructions No hospital discharge instructions. Plan of Care No plan of care. Functional Status No functional status results. Allergies, Adverse Reactions, Alerts Allergen Type Severity Reaction Status Last Updated Penicillin Allergy Unknown Active 11/24/10 Diazepam Allergy Mild ANXIOUS Active 11/24/10 Hydrocodone Allergy Intermediate VOMITING Active 11/24/10 Acetaminophen Allergy Intermediate DIARRHEA Active 01/18/14 Tetracycline Allergy Unknown Active 11/24/10 Celecoxib Adverse Reaction Severe RASH, ITCHY, AGITATED Active 01/21/14 Immunizations Name Given Type Hx Influenza Vaccination Y FALL 2012 Historical Hx Pneumococcal Vaccination Y FALL 2012 Historical Hx Influenza Vaccination Y FALL 2012 Historical Vital Signs Acute Vital Signs Vital Response Date/Time Temperature (Fahrenheit) 98.4 deg F (96.8 - 99.1) Temperature (Calculated Celsius) 36.26169 degrees C (36.0 - 37.3) Temperature Source Temporal Pulse Rate (adult) 58 bpm (60 - 100) Respiratory Rate 16 breaths/min (10 - 20) O2 Sat by Pulse Oximetry 93 % (90 - 100) Blood Pressure 131/64 mm Hg Blood Pressure Source Automatic Cuff Height 5 ft 4 in Weight 179 lb Body Mass Index 30.0 kg/m^2 Results Test Source Date Result Interp. Ref. Range Comments Glucometer January 21, 2014 8:06am 131 mg/dL H 65-110 Activated Partial Thromboplast Time September 21, 2010 9:30am 29.9 SEC N 24- 36 Alanine Aminotransferase (ALT/SGPT) July 15, 2009 1:19am 38 U/L N 9- 52 Albumin July 15, 2009 1:19am 4.22 G/DL N 3.5-5.0 Albumin/Globulin Ratio July 15, 2009 1:19am 1.4 RATIO N 1.1-2.2 Alkaline Phosphatase July 15, 2009 1:19am 110 U/L N 38-126 Amylase Level July 15, 2009 1:19am 58 U/L N 30-110 Anion Gap September 21, 2010 9:30am 7.9 MEQ/L N 5-15 Aspartate Amino Transf (AST/SGOT) July 15, 2009 1:19am 32 U/L N 14- 36 BUN/Creatinine Ratio September 21, 2010 9:30am 18 RATIO N 6-26 Basophils # (Auto) September 21, 2010 9:30am 0.0 T/MM3 N 0-0.2 Basophils (%) (Auto) September 21, 2010 9:30am 0.4 % N 0-2 Blood Urea Nitrogen September 21, 2010 9:30am 16.1 MG/DL N 7-17 Calcium Level September 21, 2010 9:30am 9.2 MG/DL N 8.4-10.2 Calculated Osmolality September 21, 2010 9:30am 279 MOSM/KG N 261-280 Carbon Dioxide Level September 21, 2010 9:30am 30 MEQ/L N 22-30 Chloride Level September 21, 2010 9:30am 106 MEQ/L N 98-107 Cholesterol Level September 21, 2010 9:30am 185 MG/DL N 132-199 Cholesterol/HDL Ratio September 21, 2010 9:30am 5.3 RATIO H 0-4.0 Creatinine September 21, 2010 9:30am 0.9 MG/DL N 0.7-1.2 Eosinophils # (Auto) September 21, 2010 9:30am 0.1 T/MM3 N 0-0.5 Eosinophils (%) (Auto) September 21, 2010 9:30am 1.0 % N 0-4 Globulin July 15, 2009 1:19am 3.0 G/DL N 2.4-3.6 Glucose Level September 21, 2010 9:30am 113 MG/DL H 65-110 Helicobacter pylori IgG Antibody March 24, 2008 9:24pm Sent out - Hematocrit September 21, 2010 9:30am 45.8 % N 36-46 Hemoglobin September 21, 2010 9:30am 16.1 GM/DL H 12-16 LDL Cholesterol, Calculated September 21, 2010 9:30am 110.6 N 66-159 Lipase July 15, 2009 1:19am 181 U/L N 23-300 Lymphocytes # (Auto) September 21, 2010 9:30am 1.6 T/MM3 N 1-4.8 Lymphocytes (%) (Auto) September 21, 2010 9:30am 23.4 % N 23-45 Mean Corpuscular Hemoglobin September 21, 2010 9:30am 30.5 UUG N 26-34 Mean Corpuscular Hemoglobin Concent September 21, 2010 9:30am 35.2 GM/DL N 31-37 Mean Corpuscular Volume September 21, 2010 9:30am 86.7 UM3 N 80-100 Mean Platelet Volume September 21, 2010 9:30am 10.4 UM3 N 7.4-10.4 Monocytes # (Auto) September 21, 2010 9:30am 0.7 T/MM3 N 0-0.8 Monocytes (%) (Auto) September 21, 2010 9:30am 9.7 % H 0-9.0 Neutrophils # (Auto) September 21, 2010 9:30am 4.6 T/MM3 N 1.8-7.7 Neutrophils (%) (Auto) September 21, 2010 9:30am 65.5 % N 33-66 Platelet Count September 21, 2010 9:30am 243 T/MM3 N 130-400 Potassium Level September 21, 2010 9:30am 3.8 MEQ/L N 3.6-5 Prothromb Time International Ratio September 21, 2010 9:30am 0.97 N 0.86- 1.10 THERAPUTIC RANGE=2.00-3.00 FOR ANTI-THROMBOSIS THERAPUTIC RANGE=2.50- 3.50 FOR IMPLANTED VALVE RDW Standard Deviation September 21, 2010 9:30am 39.6 FL N 36.9-50.2 Red Blood Count September 21, 2010 9:30am 5.28 M/MM3 H 4.00-5.20 Sodium Level September 21, 2010 9:30am 144 MEQ/L N 134-144 Tests Not Done July 15, 2009 12:42am Not done - Has specimen been collected/obtained? Y Thyroid Stimulating Hormone (TSH) July 15, 2009 1:19am 2.12 MIU/ML N 0.47-4.68 Total Bilirubin July 15, 2009 1:19am 0.30 MG/DL N 0.20-1.30 Total Protein July 15, 2009 1:19am 7.2 G/DL N 6.3-8.2 Triglycerides Level September 21, 2010 9:30am 197 MG/DL H 35-135 Urine Bilirubin July 15, 2009 12:42am Negative - Has specimen been collected/obtained? Y Urine Blood July 15, 2009 12:42am Negative - Has specimen been collected/obtained? Y Urine Collection Type July 15, 2009 12:42am Voided - Has specimen been collected/obtained? Y Urine Color July 15, 2009 12:42am Yellow - Has specimen been collected/obtained? Y Urine Glucose (UA) July 15, 2009 12:42am Negative - Has specimen been collected/obtained? Y Urine Ketones July 15, 2009 12:42am Negative - Has specimen been collected/obtained? Y Urine Leukocyte Esterase July 15, 2009 12:42am Negative - Has specimen been collected/obtained? Y Urine Nitrite July 15, 2009 12:42am Negative - Has specimen been collected/obtained? Y Urine Protein July 15, 2009 12:42am Negative - Has specimen been collected/obtained? Y Urine Specific [place] July 15, 2009 12:42am 1.020 - Has specimen been collected/obtained? Y Urine Turbidity July 15, 2009 12:42am Clear - Has specimen been collected/obtained? Y Urine Urobilinogen July 15, 2009 12:42am Normal EU/DL - Has specimen been collected/obtained? Y Urine pH July 15, 2009 12:42am 6.5 - Has specimen been collected/ obtained? Y VLDL Cholesterol September 21, 2010 9:30am 39.4 MG/DL H 0-28 White Blood Count September 21, 2010 9:30am 7.0 T/MM3 N 4.5-11.0 EKG March 24, 2008 8:15pm Complete - HDL Cholesterol Direct September 21, 2010 9:30am 35 MG/DL L 40-60 Glomerular Filtration Rate Calc September 21, 2010 9:30am 64 - Procedures Procedure Status Date Provider(s) Colonoscopy with polypectomy and biopsy completed 01/21/14 AUSTIN MILLER MD, FACS, CWS
--- OUTSIDE RECORDS SUMMARY | 2016-09-06 12:50 | XMS REPORT | Continuity of Care Document ---
Author Author [facility] Organization [facility] Address Unknown Phone Unavailable Care Team Providers Care Cigar Head Piercer Name Role Phone RODY BARRAZA MD Primary Care Physician [phone] Insurance Providers Payer Name Policy Number Subscriber Name Relationship [employer] Wps [id number] Elder Abebe Spouse Advance Directives Directive Response [...] F (96.8 - 99.1) Temperature (Calculated Celsius) 36.56156 degrees C (36.0 - 37.3) Temperature Source [...] Has specimen been collected/obtained? Y Urine Specific [place] July 15, 2009 12:42am 1.020 - Has [...]
--- OUTSIDE RECORDS SUMMARY | 2016-09-06 12:50 | XMS REPORT | Continuity of Care Document ---
Author Author [facility] Organization [facility] Address Unknown Phone Unavailable Allergies Medications Problems Procedures Results Encounters ACCT No. Visit Date/Time Discharge Status Pt. Type Provider Facility Loc./Unit Complaint [id number] 09/04/2013 13:07:00 09/04/2013 23 :59:59 CLS Outpatient
[2016-09-06] MEDS ORDERED: NORMAL SALINE 500 ML IV ONE (13:00)
[2016-09-06] MEDS ORDERED: LACT1CAP58 PO (13:08)
[2016-09-06] MEDS ORDERED: D ME PO (13:13)
[2016-09-06] MEDS ORDERED: PROM6.25 PO (13:14)
[2016-09-06] MEDS ORDERED: CEFU500T68 PO (13:15)
[2016-09-06] MEDS ORDERED: GLIM4TAB3 PO (13:17)
[2016-09-06 13:21] LABS: BASOPHILS % (AUTO) 0.5 % (0-2); EOSINOPHILS # (AUTO) 0.2 T/MM3 (0-0.5); EOSINOPHILS % (AUTO) 2.1 % (0-4); HCT - HEMATOCRIT 43.7 % (36-46); HGB - HEMOGLOBIN 15.2 GM/DL (12-16); IMMATURE GRANULOCYTE # (AUTO) 0.03 T/MM3 (0.00-0.03); IMMATURE GRANULOCYTE % (AUTO) 0.4 % (0.0-0.5); LYMPHOCYTES # (AUTO) 2.1 T/MM3 (1-4.8); LYMPHOCYTES % (AUTO) 24.4 % (23-45); MEAN CORPUSCULAR HGB 30.8 UUG (26-34); MEAN CORPUSCULAR HGB CONC(MCHC 34.8 GM/DL (31-37); MEAN CORPUSCULAR VOLUME 88.5 UM3 (80-100); MEAN PLATELET VOLUME 8.9 UM3 (9.4-12.4); MONOCYTES # (AUTO) 0.5 T/MM3 (0-0.8); NEUTROPHILS #(AUTO)-ABSOLUTE 5.7 T/MM3 (1.8-7.7); NEUTROPHILS % (AUTO) 66.6 % (33-66); RED BLOOD COUNT 4.94 M/MM3 (4.00-5.20); WBC - WHITE BLOOD COUNT 8.5 T/MM3 (4.5-11.0)
[2016-09-06] MEDS ORDERED: DICY20TA11 PO (13:22)
[2016-09-06] MEDS ORDERED: CETI-269 PO (13:22)
[2016-09-06] MEDS ORDERED: HYDR25TA PO (13:22)
[2016-09-06] MEDS ORDERED: SITA100T12 PO (13:22)
[2016-09-06] MEDS ORDERED: ALBU8.5H INH (13:22)
[2016-09-06] MEDS ORDERED: [UNRECOGNIZED DRUG - CODE] PO (13:24)
[2016-09-06 13:30] LABS: ANION GAP 9 MEQ/L (5-15); BUN/CREATININE RATIO 19 RATIO (6-26); CALCIUM 8.9 MG/DL (8.4-10.2); CHLORIDE 105 MEQ/L (98-107); CO2 - CARBON DIOXIDE 26 MEQ/L (22-30); GLOMERULAR FILTRATION RATE 55; GLUCOSE 182 MG/DL (65-110); POTASSIUM 3.4 MEQ/L (3.6-5); SODIUM 140 MEQ/L (134-144)
--- NOTE | 2016-09-06 13:43 | ERPDOC ---
Departure Disposition Decision Date: Sep 06, 2016 Disposition Decision Time: 13:56 Disposition: 01 DISCHARGED HOME, SELF-CARE Impression Impression Impression: Primary Impression: Pneumonia Pneumonia type: due to unspecified organism Laterality: right Lung location : lower lobe of lung Qualified Codes: J18.1 - Lobar pneumonia, unspecified organism Severity: Mild Condition: Stable Seen By: Physician only Referrals: TERESA RAMOS MD (Family) Problems/Meds/Labs Reviewed?: Yes Medications reviewed and manag: Yes Additional Instructions: 1. Rest 2. Continue Home Medications 3. Follow with Dr. Ramos 4. Return to the ER as needed Follow up care ordered?: Yes Mental Status: Alert, Oriented HPI - Cough/URI General Chief Complaint: Cough,Fever,Flu,URI Stated Complaint: PNEUMONIA Time Seen by Provider: 12:45 Source: patient (Patient presents to the ER with a 2-3 week complaint of cough and congestion. Patient states she was diagnosed with Pneumonia on August 23, has been on 3 different Antibiotics, but has not improved. Patient contacted Dr. Senior's office, who asked her to come to the ER for evaluation) Exam Limitations: no limitations HPI - Cough/URI Occurred At: home Onset/Timing: Changing over time Duration: other Pain/Severity Scale: Now: 0/10, Worst: Unable to Rate Prior Episodes/Possible Cause: occasional episodes Modifying Factors: IMPROVES WITH: other, WORSE WITH: coughing Associated Symptoms: cough, fever/chills (Tactile temp), other, DENIES: chest pain/soreness, dizziness, earache, facial pain, headache, lightheadedness, muscle aches, nasal congestion, nasal drainage, shortness of breath, sinus infection, sore throat, wheezing Hx of Similar Symptoms: Yes Allergies: Coded Allergies: hydrocodone (Verified Allergy, Intermediate, VOMITING, 09/06/16) diazepam (Verified Allergy, Mild, ANXIOUS, 09/06/16) Penicillins (Verified Allergy, Unknown, 09/06/16) tetracycline (Verified Allergy, Unknown, 09/06/16) celecoxib (Verified Adverse Reaction, Severe, RASH, ITCHY, AGITATED, ) 10 YEARS AGO, HAD TO GO TO ER Past History Past Medical History Metabolic: cancer, diabetes, hypertension, hypothyroidism Surgical History General: appendix Cardiac: cardiac cath Reproductive/: hysterectomy Family History Family PMH: FOUND: CAD, [place], diabetes Vaccines Hx Influenza Vaccination: Yes (2014) Hx Pneumococcal Vaccination: Yes (FALL 2013) Social History Smoking Status: Unknown if ever smoked Does patient use chewing tobac: No Second Hand Exposure: No Substance Use Type: does not use Alcohol Intake: none Marital Status: Sexuality: male partner Housing: house Household Members: spouse Service: No Current Occupational Status: retired Occupational Hazard: No Advance Directives: Yes Full Code Record Review Pertinent history updated: Yes Review of Systems Constitutional Constitutional: DENIES: chills, fever Eyes Lids/Accessories: DENIES: erythema, swelling ENMT Ears: DENIES: erythema, pain Balance: DENIES: ataxia, vertigo Sinuses: DENIES: congestion, rhinorrhea Mouth/Throat: DENIES: sore throat Cardiovascular Cardiac: DENIES: chest pain, dyspnea on exertion, orthopnea Rhythm/Rate: DENIES: tachycardia Pulmonary Respiratory: cough, DENIES: dyspnea, sputum GI Upper Abdomen: DENIES: nausea, pain, vomiting Lower Abdomen: DENIES: constipation, diarrhea, pain General: DENIES: dysuria Musculoskeletal General: DENIES: cramps, pain, weakness Integumentary Skin: DENIES: color change, itching, rash Neurological General: DENIES: ataxia, change in strength, headache, numbness, poor coordination, seizures, syncope, vertigo, weakness Psychiatric Psychiatric: DENIES: anxiety, depression, nervousness Hematologic/Lymphatic Hematologic/Lymphatic: DENIES: anemia Allergic/Immunological Allergic/Immunoligical: DENIES: sneezing All other Systems All Other Systems: Reviewed and Negative Physical Exam General General Nourishment: well nourished, well developed, appears stated age, adult General Body Habitus: well groomed Vitals and Pain First Documented Vital Signs Date Time Temp Pulse Resp B/P Pulse Ox O2 Delivery O2 Flow Rate FiO2 09/06/16 12:39 98.0 88 18 153/77 91 Room Air Weight: Kilograms: 87.000 Height (feet): 5 Height (inches): 3.00 Triage Pain Scale: RN VS reviewed by Provider: Yes Eyes (brief) Eyes Brief: found: EOMI, PERRL ENMT (brief) ENMT Brief: FOUND: TM clear, TM good light reflex, mucosa moist, NOT FOUND: pharnyx erythema Neck (brief) Neck: FOUND: trachea midline, NOT FOUND: adenopathy, tenderness, tracheal deviation Respiratory Inspection: NOT FOUND: accessory muscle use, asymmetry, audible stridor, audible wheezing, increased effort Palpation: NOT FOUND: tenderness Auscultation: FOUND: rhonchi (right base), NOT FOUND: decreased, rales, wheezes Cardiovascular (brief) Cardiac: FOUND: regular rate, regular rhythm, NOT FOUND: pedal edema Capillary Refill: <2 sec Pulses: all distal extremities, equal, strong Abdomen (brief) Abdominal Brief: FOUND: bowel normo active x4, soft, NOT FOUND: distended, tender Lymphatic (brief) Lymphatic Brief: NOT FOUND: adenopathy Musculoskeletal (brief) Musculoskeletal Brief: NOT FOUND: spasm, tenderness Integumentary (brief) Integumentary Brief: FOUND: pink, warm Neurologic (brief) Neurological Brief: FOUND: CN w/o gross def to obs, gait w/o gross def to obs, motor-no gross deficits, sensory-no gross deficits, NOT FOUND: ataxia Psychiatric (brief) Psychiatric Brief: FOUND: alert, attentive, normal affect, oriented Differential Diagnoses Differential Diagnoses Considering: Acute Bronchitis, Influenza, Pneumonia, Other Progress Results/Orders Orders Procedure Category Date Status Time Iv Lock (Ed Only) EDM 09/06/16 Transmitted 12:52 Cbc W/Auto LAB 09/06/16 Complete Diff-Reflex Manual Chest, Pa & Lateral RAD 09/06/16 Resulted Influenza A/B Screen LAB 09/06/16 Logged 12:52 Bmp - Basic Metabolic LAB 09/06/16 Complete Panel Normal Saline (Ns) PHA 09/06/16 Complete 13:00 EKG EKG 09/06/16 Logged Troponin I W LAB 09/06/16 Complete Hemolysis Index Respiratory Panel, Pcr LAB 09/06/[address] Logged 14:17 [address] In Facility: ED ADM 09/06/16 Transmitted 14:23 Measure Vital Signs [facility]A 09/06/16 In Process 14:23 Up In Room With Assist [facility]A 09/06/16 In Process 14:23 Iv Lock (Nursing) [facility] 09/06/16 In Process 14:23 Notify Adm Physician [facility]A 09/06/16 In Process In Am 14:23 Lab Results Laboratory Tests Test 09/06/16 13:13 White Blood Count 8.5T/MM3 Red Blood Count 4.94M/MM3 Hemoglobin 15.2GM/DL Hematocrit 43.7% Mean Corpuscular Volume 88.5UM3 Mean Corpuscular Hemoglobin 30.8UUG Mean Corpuscular Hemoglobin Concent 34.8GM/DL RDW Standard Deviation 39.5FL Platelet Count 340T/MM3 Mean Platelet Volume 8.9UM3 Immature Granulocyte % (Auto) 0.4% Neutrophils (%) (Auto) 66.6% Lymphocytes (%) (Auto) 24.4% Monocytes (%) (Auto) 6.0% Eosinophils (%) (Auto) 2.1% Basophils (%) (Auto) 0.5% Absolute Immature Granulocyte (auto 0.03T/MM3 Absolute Neutrophils (auto) 5.7T/MM3 Absolute Lymphocytes (auto) 2.1T/MM3 Absolute Monocytes (auto) 0.5T/MM3 Absolute Eosinophils (auto) 0.2T/MM3 Absolute Basophils (auto) 0.0T/MM3 Turbidity < 20 Sodium Level 140MEQ/L Potassium Level 3.4MEQ/L Chloride Level 105MEQ/L Carbon Dioxide Level 26MEQ/L Anion Gap 9MEQ/L Blood Urea Nitrogen 19.0MG/DL Creatinine 1.0MG/DL Glomerular Filtration Rate Calc 55 BUN/Creatinine Ratio 19RATIO Glucose Level 182MG/DL Calculated Osmolality 276MOSM/KG Calcium Level 8.9MG/DL Icterus Index < 2 Troponin I < 0.012ng/ml Chemistry Specimen Hemolysis < 15 Medications Current ED Medications Sodium Chloride (NS) 500 ml @ 0 mls/hr Q0M ONCE IV Last administered on 13:13; Start 09/06/16 at 13:00; Stop 09/06/16 at 13:01; Status DC Progress Progress Patient is resting comfortably EKG EKG : Rate: 60-100 Rhythm: sinus [place]: normal QRS: normal Intervals: normal ST/T: normal Interpreted by: signing physician EKG ScImage/Picomm EKG interpreted in ScImage/Pic: No Consult/PCP Consult/PCP #1: Physician Contacted: Dr. Ramos Time Called: 13:57 Time of first response: 14:07 Type of discussion: Phone Consult/PCP Discussion Details Discussed patient evaluation, labs and CXR Comments Concerned that the patient isn't Improving Would like the patient admitted Consult/PCP #2: Physician Contacted: Dr. Arrieta Time Called: 14:10 Time of first response: 14:14 Type of discussion: Admit Discussion/PCP Discussion Details Discussed patient History, Prior treatment regimens, and labs/imaging Comments Admit OBS No Blood Cultures Viral PCR Xray Xray : Reason for Exam: Pneumonia Xray: CXR Portable Interpretation: Abnormal, Reviewed Written Report (RLL infiltrate) MARA BURGESS DO Sep 06, 2016 13:43
--- NOTE | 2016-09-06 13:43 | DI ---
INDICATION: ITS.REASON: pneumonia PROCEDURE: CHEST 2-VIEWS UPRIGHT (PA \T\ LAT) Encounter: Initial COMPARISON: August 18, 2015 FINDINGS: There is some new airspace opacity in the right lower lobe density comparison. Left lung appears clear. No pleural effusion or pneumothorax. Heart size and mediastinal contours are stable. Pulmonary vascularity is normal. No significant skeletal abnormality. Impression: Right lower lobe pneumonia. .
--- NOTE | 2016-09-06 14:30 | NUR ---
PLACE IN FACILITY PATIENT WILL GO TO ROOM 145, DWAIN REED
--- NOTE | 2016-09-06 14:37 | NUR ---
REPORT REPORT TO DWAIN REED.
--- OUTSIDE RECORDS SUMMARY | 2016-09-06 14:41 | XMS REPORT | Continuity of Care Document ---
Author Author [facility] Organization [facility] Address Unknown Phone Unavailable Allergies Medications Problems Procedures Results Encounters ACCT No. Visit Date/Time Discharge Status Pt. Type Provider Facility Loc./Unit Complaint [id number] 09/04/2013 13:07:00 09/04/2013 23 :59:59 CLS Outpatient
--- OUTSIDE RECORDS SUMMARY | 2016-09-06 14:41 | XMS REPORT | Continuity of Care Document ---
Author Author [facility] Organization [facility] Address Unknown Phone Unavailable Care Team Providers Care Pie Cutter Name Role Phone RODY BARRAZA MD Primary Care Physician [phone] Insurance Providers Payer Name Policy Number Subscriber Name Relationship [employer] Wps [id number] Elder Abebe Spouse Advance Directives Directive Response [...] F (96.8 - 99.1) Temperature (Calculated Celsius) 36.26304 degrees C (36.0 - 37.3) Temperature Source [...] Has specimen been collected/obtained? Y Urine Specific [place] July 15, 2009 12:42am 1.020 - Has [...]
--- NOTE | 2016-09-06 14:45 | NUR ---
DEPART PATIENT TRANSPORTED TO ROOM 145. CARES RELEASED.
--- NOTE | 2016-09-06 14:45 | NUR ---
ADMISSION TO MEDICAL UNIT PATIENT BROUGHT FROM ER VIA WHEELCHAIR. ABLE TO GET UP FROM WHEELCHAIR INDEPENDENTLY. VSS. DENIES SOA OR PAIN. PRESENT.
--- NOTE | 2016-09-06 15:00 | NUR ---
admitted from er per wc has a hackey nonproductive coughstates has been having diarhea stool for c diff obtained
--- NOTE | 2016-09-06 16:37 | HPPDOC ---
BRYCE WELDON DIRECTOR OF LABOR AND DELIVERY 09/06/16 1633: HPI - Adult Date DATE: 09/06/16 TIME: 16:26 General Chief Complaint: Cough, fever History of Present Illness Brittany Barry is a pleasant 66-year-old woman who has been sick since August 16. Her symptoms have included fever up to 104.7, sore throat, earache, chest felt tight, nonproductive cough, shortness of breath with coughing, weak, tired , achy. Her temperature has persisted for 2-1/2 weeks. She tried taking Tylenol cold x 1 week. She had mild nausea and vomited for only [address] Linda on 08/20/16 - recommended OTC treatments, but she didn't improve and CXR was done on 08/23 and she was dx with RML pneumonia. She also had mildly elevated WBC at 12.7 and 81% segs on that day. Influenza screen was negative. She was started on Levaquin, and she completed the a 10-day course without much improvement. She was on started albuterol and also completed a course of Zithromax - and developed an itchy rash to her torso during that time. Symptoms persisted and then she was started on cefuroxime. She developed watery diarrhea on 09/05/16 - describes about 9 episodes since yesterday. Denies recent ill exposures. Pt was in [place] 08/08-08/14, enjoying a road trip to a few different places throughout the state. Denies leg swelling. [place], and she has a pet cat, though she doesn't have anything to do with it, and she also has a pet dog. Shots are up to date. They have a few cows and calves, but she isn't involved with their care. She denies any travel outside of the country. She contacted Dr. Linda on 09/06/16, reporting that her symptoms have not improved. She was asked to present to the emergency department. Chest x-ray showed right lower lobe infiltrate. Her white count was normal at 8.5. Chemistries were fairly unremarkable with the exception of a mildly low potassium at 3.4. Troponin was negative. Viral panel was negative. The hospitalist service was contacted, and the patient was admitted to observation status. Past Medical History Past Medical History Patient's Medical History: (1) Anxiety (2) HTN (hypertension) (3) GERD (gastroesophageal reflux disease) (4) Hypothyroidism (5) Mild obstructive sleep apnea (6) Type 2 diabetes mellitus (7) Uterine cancer (8) Obesity (BMI 30.0-34.9) Surgical History Patient's Surgical History: EGD and biopsy 10/03/15 Colonoscopy and polypectomy 01/21/14. Breast biopsy, in 2001, and in 1990 negative. ADRIANO/BSO, 1999 Heart catheterization - no stent stress test in 2016 that was negative. Appendectomy. Tonsillectomy Current Medications Home Meds Reported Medications Guaifen/Phenyleph/Acetaminophn (Tylenol Cold Head Congest Cplt) 1 Each Tablet, 1 TAB PO PRN Y for COLD SYMPTOMS 09/06/16 Cetirizine HCl (Cetirizine HCl) 10 Mg Tablet, 10 MG PO DAILY, TAB 09/06/16 Sitagliptin Phosphate (Januvia) 100 Mg Tablet, 100 MG PO DAILY, TAB 09/06/16 Albuterol Sulfate (Proair HFA 90 mcg/actuation) 8.5 Gm Hfa.aer.ad, 1 PUFF INH Q6H Y for WHEEZING, INHALER 09/06/16 Dicyclomine HCl (Dicyclomine HCl) 20 Mg Tablet, 20 MG PO BID, #60 TAB 11 Refills 09/06/16 Hydrochlorothiazide (Hydrochlorothiazide) 25 Mg Tablet, 25 MG PO DAILY 09/06/16 Glimepiride (Glimepiride) 4 Mg Tablet, 4 MG PO DAILY, TAB BEST TAKEN WITH BREAKFAST. 09/06/16 Cefuroxime Axetil (Cefuroxime) 500 Mg Tablet, 500 MG PO BID 09/06/16 Promethazine HCl (Promethazine HCl) 6.25 Mg/5 Ml Syrup, 5 ML PO Q6H 09/06/16 Lactobacillus Rhamnosus GG (Culturelle) 1 Each Capsule, 1 CAP PO DAILY 09/06/16 Citalopram Hydrobromide (Celexa) 20 Mg Tablet, 20 MG PO DAILY 08/18/15 Esomeprazole Mag Trihydrate (Nexium) 20 Mg Capsule, 20 MG PO BID 08/18/15 Losartan Potassium (Cozaar) 50 Mg Tablet, 50 MG PO DAILY 09/21/10 Levothyroxine Sodium (Levothyroxine Sodium) 50 Mcg Tablet, 50 MCG PO DAILY 07/15/09 Allergies: Coded Allergies: hydrocodone (Verified Allergy, Intermediate, VOMITING, 09/06/16) azithromycin (Verified Allergy, Mild, RASH, 09/06/16) no hives diazepam (Verified Allergy, Mild, ANXIOUS, 09/06/16) Penicillins (Verified Allergy, Unknown, 09/06/16) tetracycline (Verified Allergy, Unknown, 09/06/16) celecoxib (Verified Adverse Reaction, Severe, RASH, ITCHY, AGITATED, ) 10 YEARS AGO, HAD TO GO TO ER Family History Family History: Mother at age 80 - she had coronary artery disease Father at age 84 - he had COPD and colon cancer Younger sister has diabetes and also had uterine cancer Social History Smoking Status: Never smoker Does patient use chewing tobac: No Second Hand Exposure: No Substance Use Type: does not use Alcohol Intake: none Marital Status: Sexuality: male partner Housing: house Household Members: spouse Service: No Current Occupational Status: retired Occupational Hazard: No Prior Occupation: entry level buyer/cash applications associate for [employer] Advance Directives: Yes DPOA for Healthcare Only (Elder Barry, ) , Yes Full Code Social History Comments PCP - Dr. Linda Review of Systems Constitutional: REPORTS: appetite decrease, chills, fatigue, fever, weakness Eyes Vision: DENIES: vision changes ENMT Sinuses: FOUND: congestion Mouth/Throat: REPORTS: sore throat Cardiovascular see HPI Pulmonary Respiratory: cough, see HPI, DENIES: sputum GI Upper Abdomen: vomiting (resolved), DENIES: nausea, pain Lower Abdomen: diarrhea, DENIES: pain General: other (reports vaginal itching, like a yeast infection), DENIES: dysuria, frequency Musculoskeletal General: other (myalgias), DENIES: joint pain Integumentary Skin: itching, rash, see HPI Neurological General: DENIES: ataxia, memory disturbances, seizures, syncope Psychiatric Psychiatric: anxiety Hematologic/Lymphatic DENIES: anemia Allergic/Immunological DENIES: frequent infections All Other Systems All Other Systems: Reviewed (remainder of 10-point ROS Neg.) Physical Exam General General Nourishment: well nourished, well developed, obese General Body Habitus: well groomed Vital Signs Vital Signs Date Time Temp Pulse Resp B/P Pulse Ox O2 Delivery O2 Flow Rate FiO2 09/06/16 16:05 70 18 98 Room Air 09/06/16 14:51 96.7 131/69 Height (Feet): 5 Height (Inches): 3.00 Eyes Brief: FOUND: PERRL, NOT FOUND: scleral icterus ENMT Brief: FOUND: mucosa moist, pharnyx erythema (mild), NOT FOUND: lesions Neck Brief: FOUND: adenopathy (anterior cervical lymphadenopathy), NOT FOUND: nuchal rigidity Respiratory Auscultation: FOUND: decreased (slightly decreased to right base), normal, NOT FOUND: rales, rhonchi, wheezes Cardiovascular Auscultation: FOUND: S1, S2, regular Peripheral Pulses: 2+: Dorasalis Pedis (L), Dorsalis Pedis (R), Posterior Tibial (L), Posterior Tibial (R), Radial (L), Radial (R) Edema: 0: Anasarca, Arm (L), Arm (R), Face, Leg (L), Leg (R) Abdomen Inspection: NOT FOUND: distention Palpation: FOUND: soft, NOT FOUND: involuntary guarding, rebound, tender, voluntary guarding Auscultation: FOUND: normo active (brief) Comments Mild vulvar and labial erythema Lymphatic (brief) Lymphatic Brief: NOT FOUND: lymphedema Musculoskeletal (brief) Musculoskeletal Brief: NOT FOUND: tenderness (calves soft and nontender) Integumentary (brief) Integumentary Brief: FOUND: dry, pink, rash (erythemic papular rash to chest, abdomen and back with minimal excoriations), warm Integumentary General: FOUND: dry, warm Color: FOUND: pink Neurologic (brief) Neurological Brief: FOUND: cranial 2-12 intact (grossly intact) Neurologic GCS Eye Opening: (4)Spontaneous GCS Verbal: (5)Oriented GCS Motor: (6)Obeys Commands RN Documented GCS Total: 15 Psychiatric (brief) FOUND: alert, attentive, normal affect, oriented Laboratory Laboratory Tests Test 09/06/16 13:13 09/06/16 14:34 White Blood Count 8.5T/MM3 Red Blood Count 4.94M/MM3 Hemoglobin 15.2GM/DL Hematocrit 43.7% Mean Corpuscular Volume 88.5UM3 Mean Corpuscular Hemoglobin 30.8UUG Mean Corpuscular Hemoglobin Concent 34.8GM/DL RDW Standard Deviation 39.5FL Platelet Count 340T/MM3 Mean Platelet Volume 8.9UM3 Immature Granulocyte % (Auto) 0.4% Neutrophils (%) (Auto) 66.6% Lymphocytes (%) (Auto) 24.4% Monocytes (%) (Auto) 6.0% Eosinophils (%) (Auto) 2.1% Basophils (%) (Auto) 0.5% Absolute Immature Granulocyte (auto 0.03T/MM3 Absolute Neutrophils (auto) 5.7T/MM3 Absolute Lymphocytes (auto) 2.1T/MM3 Absolute Monocytes (auto) 0.5T/MM3 Absolute Eosinophils (auto) 0.2T/MM3 Absolute Basophils (auto) 0.0T/MM3 Turbidity < 20 Sodium Level 140MEQ/L Potassium Level 3.4MEQ/L Chloride Level 105MEQ/L Carbon Dioxide Level 26MEQ/L Anion Gap 9MEQ/L Blood Urea Nitrogen 19.0MG/DL Creatinine 1.0MG/DL Glomerular Filtration Rate Calc 55 BUN/Creatinine Ratio 19RATIO Glucose Level 182MG/DL Calculated Osmolality 276MOSM/KG Calcium Level 8.9MG/DL Icterus Index < 2 Troponin I < 0.012ng/ml Chemistry Specimen Hemolysis < 15 Adenovirus (PCR) Negative Bordetella parapertussis DNA (PCR) Negative Chlamydia pneumoniae DNA (PCR) Negative Coronavirus Type OC43 (PCR) Negative Coronavirus Type HKU1 (PCR) Negative Coronavirus Type 229E (PCR) Negative Coronavirus Type NL63 (PCR) Negative Human Metapneumovirus (PCR) Negative Influenza Virus Type A (PCR) Negative Influenza Virus Type B (PCR) Negative Mycoplasma pneumoniae (PCR) Negative Parainfluenza Type 1 (PCR) Negative Parainfluenza Type 2 (PCR) Negative Parainfluenza Type 3 (PCR) Negative Parainfluenza Type 4 (PCR) Negative Respiratory Syncytial Virus (PCR) Negative Enterovirus/Rhinovirus (PCR) Negative Assessment & Plan Problems: (1) Pneumonia Status: Acute Qualifiers: Pneumonia type: due to unspecified organism Laterality: right Lung location: lower lobe of lung Qualified Codes: J18.1 - Lobar pneumonia, unspecified organism (2) Hypokalemia Status: Acute Assessment & Plan: POA (3) Anxiety Status: Chronic (4) Hypothyroidism Status: Chronic (5) Uterine cancer Status: Chronic (6) GERD (gastroesophageal reflux disease) Status: Chronic (7) HTN (hypertension) Status: Chronic (8) Type 2 diabetes mellitus Status: Chronic (9) Mild obstructive sleep apnea Status: Chronic (10) Obesity (BMI 30.0-34.9) Status: Chronic Plan/Intensity of Service Admit, observation status under the hospitalist service. Right lower lobe pneumonia, failed outpatient treatment with 3 different antibiotics (Levaquin, azithromycin, cefuroxime). Since then, she has developed a rash while taking a azithromycin (will add azithromycin to allergies), and diarrhea on 09/05/16. We'll check stool for C. difficile. Start culturelle. Start DuoNeb, Mucinex, Tessalon Perles, and cough drops. Repeat influenza swab. Consider steroids as adjunct for CAP. We'll obtain CT a for PE and to examine lungs in light of prolonged pneumonia and respiratory symptoms. She is not hypoxic. Pruritic Rash, start Pepcid twice a day and Benadryl as needed. Give Diflucan 200 mg for suspected vaginal candidiasis. Diabetes: A1c was 8.6% on 07/26/16. Continue glimepiride, Januvia, and monitor blood sugars Discussed with Dr. Arrieta. DVT Prophylaxis: SCD'S Code Status Full Code Hospital Course Summary Disclaimer The hospital course summary below is not to be considered part of the above Progress Note. Hospital Course Summary 09/06/16 Admit, observation status under the hospitalist service. Right lower lobe pneumonia, failed outpatient treatment with 3 different antibiotics (Levaquin, azithromycin, cefuroxime). Since then, she has developed a rash while taking a azithromycin (will add azithromycin to allergies), and diarrhea on 09/05/16. We'll check stool for C. difficile. Start culturelle. Start DuoNeb, Mucinex, Tessalon Perles, and cough drops. Repeat influenza swab. Consider steroids as adjunct for CAP. We'll obtain CT a for PE and to examine lungs in light of prolonged pneumonia and respiratory symptoms. She is not hypoxic. Pruritic Rash, start Pepcid twice a day and Benadryl as needed. Give Diflucan 200 mg for suspected vaginal candidiasis. Diabetes: A1c was 8.6% on 07/26/16. Continue glimepiride, Januvia, and monitor blood sugars YAZ ARRIETA MD 09/06/162025: Past Medical History Current Medications Home Meds Reported Medications Guaifen/Phenyleph/Acetaminophn (Tylenol Cold Head Congest Cplt) 1 Each Tablet, 1 TAB PO PRN Y for COLD SYMPTOMS 09/06/16 Cetirizine HCl (Cetirizine HCl) 10 Mg Tablet, 10 MG PO DAILY, TAB 09/06/16 Sitagliptin Phosphate (Januvia) 100 Mg Tablet, 100 MG PO DAILY, TAB 09/06/16 Albuterol Sulfate (Proair HFA 90 mcg/actuation) 8.5 Gm Hfa.aer.ad, 1 PUFF INH Q6H Y for WHEEZING, INHALER 09/06/16 Dicyclomine HCl (Dicyclomine HCl) 20 Mg Tablet, 20 MG PO BID, #60 TAB 11 Refills 09/06/16 Hydrochlorothiazide (Hydrochlorothiazide) 25 Mg Tablet, 25 MG PO DAILY 09/06/16 Glimepiride (Glimepiride) 4 Mg Tablet, 4 MG PO DAILY, TAB BEST TAKEN WITH BREAKFAST. 09/06/16 Cefuroxime Axetil (Cefuroxime) 500 Mg Tablet, 500 MG PO BID 09/06/16 Promethazine HCl (Promethazine HCl) 6.25 Mg/5 Ml Syrup, 5 ML PO Q6H 09/06/16 Lactobacillus Rhamnosus GG (Culturelle) 1 Each Capsule, 1 CAP PO DAILY 09/06/16 Citalopram Hydrobromide (Celexa) 20 Mg Tablet, 20 MG PO DAILY 08/18/15 Esomeprazole Mag Trihydrate (Nexium) 20 Mg Capsule, 20 MG PO BID 08/18/15 Losartan Potassium (Cozaar) 50 Mg Tablet, 50 MG PO DAILY 09/21/10 Levothyroxine Sodium (Levothyroxine Sodium) 50 Mcg Tablet, 50 MCG PO DAILY 07/15/09 Allergies: Coded Allergies: hydrocodone (Verified Allergy, Intermediate, VOMITING, 09/06/16) azithromycin (Verified Allergy, Mild, RASH, 09/06/16) no hives diazepam (Verified Allergy, Mild, ANXIOUS, 09/06/16) Penicillins (Verified Allergy, Unknown, 09/06/16) tetracycline (Verified Allergy, Unknown, 09/06/16) celecoxib (Verified Adverse Reaction, Severe, RASH, ITCHY, AGITATED, ) 10 YEARS AGO, HAD TO GO TO ER Sepsis Diagnostic Criteria Sepsis SIRS Criteria: Temp<=96.8 or >=100.4 Assessment & Plan Assessment I have independently evaluated and examined this patient. I reviewed the chart, the patient's history, and the DIRECTOR OF LABOR AND DELIVERY's documented findings as above. We discussed and formulated the assessment and plan as above with additions as below: Lingering cough after diagnosis of pneumonia earlier this month. Fevers have resolved as has leukocytosis seen on 08/23. Cough is nonproductive and the patient is fatigued and has subsequently developed diarrhea. On examination the patient is alert and cooperative. She speaks in full sentences and has no evidence of respiratory distress. Breath sounds are slightly diminished at the bases, right more so than left. There is no wheezing. Abdomen is benign. Viral pathology was initially anticipated however respiratory viral panel is negative. Chest x-ray was unremarkable today however CTA was subsequently obtained and demonstrates consolidation of the posterior segment of the right lower lobe without localized mass; no evidence of PE. Both studies reviewed by myself. Will ask respiratory to induce sputum production, initiate acappella valve. Prednisone will be initiated at 40 mg daily for symptomatic control. It's unclear to me that additional antibiotics will be of any benefit at this time. Patient may require bronchoscopy for definitive diagnosis if sputum cannot be induced. No evidence of sepsis. Plan/Intensity of Service Discussed with Dr. Linda and Dr. Fatima. CTA and chest x-ray reviewed by myself. Laboratory data reviewed. BRYCE WELDON APRN Sep 06, 2016 16:33 YAZ ARRIETA MD Sep 06, 2016 20:26
[2016-09-06] MEDS ORDERED: GUAIFENESIN DM 600mg/30mg TABLET PO PRN (17:00)
[2016-09-06] MEDS ORDERED: FLUCONAZOLE 100 MG TABLET PO ONE (17:00)
[2016-09-06] MEDS ORDERED: ONDANSETRON 4mg/2ml INJECTION IV PRN (17:00)
[2016-09-06] MEDS ORDERED: BENZONATATE 200 MG CAPSULE PO PRN (17:00)
[2016-09-06] MEDS ORDERED: DiphenhydrAMINE 25 MG CAPSULE PO PRN (17:00)
[2016-09-06] MEDS ORDERED: POTASSIUM CHLORIDE 20 MEQ TABLET PO ONE (17:30)
[2016-09-06] MEDS ORDERED: IOHEXOL 350 MG/ML 75ml INJECTION ONE (18:00)
[2016-09-06] MEDS ORDERED: NORMAL SALINE 100 ML ONE (18:00)
[2016-09-06] MEDS ORDERED: SALINE FLUSH 10ml SYRINGE ONE (18:01)
[2016-09-06 18:36] LABS: C. DIFFICILE TOXIN B NEGATIVE (NEGATIVE)
[2016-09-06] MEDS: LACTOBACILLUS (15B cfu) CAPSULE PO SCH (18:50)
[2016-09-06] MEDS: NORMAL SALINE 1,000 ML IV SCH (18:51)
[2016-09-06] MEDS: ALBUTEROL/IPRATROPIUM INHAL. 2.5mg-0.5mg/3ml Neb. AEROSOL SCH ×2 (19:15→19:40)
--- NOTE | 2016-09-06 19:17 | NUR ---
to xray and returned c diff stool is negative,
[2016-09-06] MEDS ORDERED: SODIUM CHLORIDE 7% INH ONE (20:30)
[2016-09-06] MEDS ORDERED: PredniSONE 20 MG TABLET PO ONE (20:30)
[2016-09-06] MEDS: FAMOTIDINE 20 MG TABLET PO SCH (21:10)
[2016-09-06] MEDS: DICYCLOMINE 20 MG TABLET PO SCH (21:10)
[2016-09-06] MEDS: PANTOPRAZOLE 20 MG TABLET PO SCH (21:10)
[2016-09-07] VITALS (8 sets, daily range): BP systolic 131–141; BP diastolic 69–75; PULSE 70–92; RESP 16–20; TEMP 96–98.3; O2SAT 91–99
[2016-09-07] MEDS: ACETAMINOPHEN 325 MG TABLET PO PRN ×2 (02:46→23:53)
[2016-09-07 04:54] LABS: HCT - HEMATOCRIT 41.8 % (36-46); HGB - HEMOGLOBIN 14.3 GM/DL (12-16); MEAN CORPUSCULAR HGB 30.4 UUG (26-34); MEAN CORPUSCULAR HGB CONC(MCHC 34.2 GM/DL (31-37); MEAN CORPUSCULAR VOLUME 88.9 UM3 (80-100); MEAN PLATELET VOLUME 9.1 UM3 (9.4-12.4); WBC - WHITE BLOOD COUNT 6.6 T/MM3 (4.5-11.0)
[2016-09-07 05:10] LABS: ANION GAP 12 MEQ/L (5-15); BUN/CREATININE RATIO 20 RATIO (6-26); CALCIUM 8.8 MG/DL (8.4-10.2); CHLORIDE 104 MEQ/L (98-107); CO2 - CARBON DIOXIDE 23 MEQ/L (22-30); CREATININE 0.9 MG/DL (0.7-1.2); GLOMERULAR FILTRATION RATE 62; GLUCOSE 258 MG/DL (65-110); POTASSIUM 4.4 MEQ/L (3.6-5); SODIUM 139 MEQ/L (134-144)
[2016-09-07] MEDS: NORMAL SALINE 1,000 ML IV SCH ×2 (05:20→15:43)
--- NOTE | 2016-09-07 05:59 | NUR ---
SHIFT SUMMARY PT A/O X 3. DENIES SOA OR CHEST PAIN. PT STATES SHE IS UP MOST OF THE TIME UNTIL 1 AM. UP AT SPRING, GAIT IS STEADY. ASKED FOR A SANDWICH FOR A SNACK. ABOUT HOUR LATER PT STARTED COUGHING AND VOMITED SMALL AMOUNT. IVF INFUSING WITHOUT DIFFICULT. ZOFRAN GIVEN FOR VOMITING. BY 0300 PT WAS UNABLE TO SLEEP AND ASKED FOR BENADRLY AND ONE TYLENOL 325 MG. CALL LIGHT WITHIN REACH.
[2016-09-07 06:49] LABS: ANISOCYTOSIS 1+; LYMPHOCYTES # (MANUAL) 0.6 T/MM3 (1-4.8); TOTAL CELLS COUNTED 100 %
[2016-09-07] MEDS: ALBUTEROL/IPRATROPIUM INHAL. 2.5mg-0.5mg/3ml Neb. AEROSOL SCH ×4 (07:23→19:34)
[2016-09-07] MEDS ORDERED: PredniSONE 20 MG TABLET PO SCH (08:00)
--- NOTE | 2016-09-07 08:23 | DI ---
Indication: ITS.REASON: fever, recent travel, cough x 3 wks PROCEDURE: CTA PULMONARY EMBOLI: Encounter: Initial Comparison: Chest x-ray from the same date Technique: Axial CT pulmonary angiographic phase images were performed through the chest after the administration of intravenous contrast. Coronal and Sagittal MIP reconstructed images were created and reviewed. Automated Exposure Control and Iterative Reconstruction dose reducing techniques were utilized. Contrast: Omnipaque 350 60 mL Findings: Pulmonary arteries: Exam is diagnostic to the subsegmental pulmonary arterial level. No filling defects identified to suggest a pulmonary embolus. Other findings: Right lower lobe consolidation is confirmed. No pleural effusion. Some areas of probable air trapping identified scattered throughout both lung devries suggesting small airways disease. No pleural effusion or pneumothorax. Central airways are patent. No axillary or mediastinal adenopathy by CT criteria. Heart size is normal. No pericardial effusion. The upper abdomen shows no acute findings. Impression: No pulmonary embolus. Right lower lobe pneumonia. There is a preliminary report by [facility]. .
[2016-09-07] MEDS: FAMOTIDINE 20 MG TABLET PO SCH ×2 (08:42→20:32)
[2016-09-07] MEDS: CETIRIZINE 10 MG TABLET PO SCH (08:43)
[2016-09-07] MEDS: SITAGLIPTIN 100 MG TABLET PO SCH (08:43)
[2016-09-07] MEDS: LOSARTAN 50 MG TABLET PO SCH (08:43)
[2016-09-07] MEDS: LEVOTHYROXINE 50 MCG TABLET PO SCH (08:43)
[2016-09-07] MEDS: GLIMEPIRIDE 4 MG TABLET PO SCH (08:43)
[2016-09-07] MEDS: DICYCLOMINE 20 MG TABLET PO SCH ×2 (08:44→20:32)
[2016-09-07] MEDS: PANTOPRAZOLE 20 MG TABLET PO SCH ×2 (08:44→20:32)
[2016-09-07] MEDS: LACTOBACILLUS (15B cfu) CAPSULE PO SCH ×3 (08:44→16:58)
[2016-09-07] MEDS: HYDROCHLOROTHIAZIDE 25 MG TABLET PO SCH (08:44)
--- NOTE | 2016-09-07 10:10 | NUR ---
CM CM IN TO VISIT PATIENT, SHE IS A&O. PATIENT PLANS TO DISCHARGE HOME, STATES IF NEEDS ANY HELP HAS A GOOD . DENIES ANY OTHER DISCHARGE NEEDS AT THIS TIME. CM CONTACT INFORMATION GIVEN. Addendum: 09/07/16 at 1011 by MANJULA JEAN RN Amended: Links added.
--- NOTE | 2016-09-07 10:12 | NUR ---
CM LACE SCORE IS 5, NO FURTHER FOLLOW UP IS NEEDED.
--- NOTE | 2016-09-07 13:33 | NUR ---
sputum culture obtained and sent to lab,has a harse cough. up and around.
--- NOTE | 2016-09-07 16:17 | PNPDOC ---
Subjective Date DATE: 09/07/16 TIME: 16:00 Subjective Mrs. Barry reports persistent cough which is generally nonproductive although she was able to produce a couple of teaspoons of sputum after respiratory induced production and following a cappella treatment. Cough is intense enough that it induced vomiting on one occasion overnight. She has no dyspnea at rest and is not wheezing. She's not been nauseated and denies pain except along the costochondral margins anteriorly which worsens with cough. She denied lightheadedness or fever and has not continued to have multiple stools. Objective Vital Signs Vital signs Vital Signs Date Time Temp Pulse Resp B/P Pulse Ox O2 Delivery O2 Flow Rate FiO2 09/07/16 15:45 98.3 91 20 136/71 91 Room Air EXAM General-NAD, alert, harsh coarse cough present frequently HEENT-conjunctiva clear Lungs-faint crackles at the right base, respirations nonlabored and good airflow Cardiac-regular rhythm, S1-S2 Abd-soft, nontender, bowel sounds present Neuro-sensation intact 4 extremities Psych-calm, cooperative Height (Feet): 5 Height (Inches): 3.00 Weight (Kilograms): 89.000 Laboratory Laboratory Laboratory Tests 09/06/16 13:13 09/07/16 04:29 Laboratory Tests 09/06/16 13:13 09/07/16 04:29 Segs 91, lymphocytes 9 Accu-Cheks [phone] Microbiology Microbiology Microbiology Date/Time Source Procedure Growth Status 09/07/16 10:59 Sputum Expectorated Sputum Gram Stain -many epithelial cells, moderate WBCs Many gram-positive cocci in clusters, Moderate G+C in chains and pairs, Moderate G-rods and G+ rods Resulted 09/07/16 10:59 Sputum Expectorated Sputum Sputum Culture - Preliminary CULTURE INITIATED - RESULTS PENDING Resulted C. difficile toxin negative Respiratory viral panel negative Sepsis Diagnostic Criteria Sepsis SIRS Criteria: Temp<=96.8 or >=100.4 Assessment & Plan Problems: (1) Pneumonia Status: Acute Qualifiers: Pneumonia type: due to unspecified organism Laterality: right Lung location: lower lobe of lung Qualified Codes: J18.1 - Lobar pneumonia, unspecified organism Assessment & Plan: Consolidation of the posterior segment of the right lower lobe on CT (2) Hypokalemia Status: Resolved Assessment & Plan: POA (3) Anxiety Status: Chronic (4) Hypothyroidism Status: Chronic (5) Uterine cancer Status: Chronic (6) GERD (gastroesophageal reflux disease) Status: Chronic (7) HTN (hypertension) Status: Chronic (8) Type 2 diabetes mellitus Status: Chronic Qualifiers: Diabetes mellitus complication status: with hyperglycemia (9) Mild obstructive sleep apnea Status: Chronic (10) Obesity (BMI 30.0-34.9) Status: Chronic Assessment Persistent severe cough despite outpatient antibiotics. Sputum with white cells and gram-positive cocci in clusters as the dominant organism on Gram stain. Given failure of outpatient antibiotics and evidence of dense infiltrate on CT chest will initiate IV antibiotics with Rocephin. Check urine antigen to Legionella and strep. Previously failed Levaquin and developed allergic reaction/rash with azithromycin. Continue supportive measures with breathing treatments, Acappella, and prednisone. May eventually require bronchoscopy for definitive diagnosis. Significant hyperglycemia with steroids-insulin added. Hypokalemia corrected with supplementation. Several stools but frequency has improved, C. difficile negative. Blood pressure stable following addition of prednisone. Discontinue IV fluids. Plan/Intensity of Service Laboratory data reviewed. They discussion with patient regarding management options-converted to inpatient, medications changed. DVT Prophylaxis: SCD'S Code Status Full Code Hospital Course Summary Disclaimer The hospital course summary below is not to be considered part of the above Progress Note. Hospital Course Summary 09/06/16 Admit, observation status under the hospitalist service. Right lower lobe pneumonia, failed outpatient treatment with 3 different antibiotics (Levaquin, azithromycin, cefuroxime). Since then, she has developed a rash while taking a azithromycin (will add azithromycin to allergies), and diarrhea on 09/05/16. We'll check stool for C. difficile. Start culturelle. Start DuoNeb, Mucinex, Tessalon Perles, and cough drops. Repeat influenza swab. Consider steroids as adjunct for CAP. We'll obtain CT a for PE and to examine lungs in light of prolonged pneumonia and respiratory symptoms. She is not hypoxic. Pruritic Rash, start Pepcid twice a day and Benadryl as needed. Give Diflucan 200 mg for suspected vaginal candidiasis. Diabetes: A1c was 8.6% on 07/26/16. Continue glimepiride, Januvia, and monitor blood sugars 09/07-Meenakshi Persistent severe cough despite outpatient antibiotics. Sputum with white cells and gram-positive cocci in clusters as the dominant organism on Gram stain. Given failure of outpatient antibiotics and evidence of dense infiltrate on CT chest will initiate IV antibiotics with Rocephin. Check urine antigen to Legionella and strep. Previously failed Levaquin and developed allergic reaction/rash with azithromycin. Continue supportive measures with breathing treatments, Acappella, and prednisone. May eventually require bronchoscopy for definitive diagnosis. Significant hyperglycemia with steroids-insulin added. Hypokalemia corrected with supplementation. Several stools but frequency has improved, C. difficile negative. Discontinue IV fluids. YAZ BEAUCHAMP MD Sep 07, 2016 16:05
[2016-09-07] MEDS: INSULIN LISPRO 100 UNIT/ML SQ PRN ×2 (16:57→20:33)
[2016-09-07] MEDS: CEFTRIAXONE 1 G in NORMAL SALINE 100 ML IV SCH (16:58)
--- NOTE | 2016-09-07 17:19 | NUR ---
resting no co at present.
[2016-09-07] MEDS: MENTHOL COUGH DROPS (RICOLA) MM PRN ×2 (20:39→23:53)
[2016-09-08] VITALS: BP 129/68; PULSE 71; RESP 20; TEMP 96.4; O2SAT 95
[2016-09-08 05:25] LABS: BASOPHILS % (AUTO) 0.2 % (0-2); EOSINOPHILS % (AUTO) 0.4 % (0-4); HCT - HEMATOCRIT 39.1 % (36-46); HGB - HEMOGLOBIN 13.4 GM/DL (12-16); IMMATURE GRANULOCYTE # (AUTO) 0.03 T/MM3 (0.00-0.03); IMMATURE GRANULOCYTE % (AUTO) 0.3 % (0.0-0.5); LYMPHOCYTES # (AUTO) 2.1 T/MM3 (1-4.8); LYMPHOCYTES % (AUTO) 20.3 % (23-45); MEAN CORPUSCULAR HGB 30.9 UUG (26-34); MEAN CORPUSCULAR HGB CONC(MCHC 34.3 GM/DL (31-37); MEAN CORPUSCULAR VOLUME 90.3 UM3 (80-100); MEAN PLATELET VOLUME 9.7 UM3 (9.4-12.4); MONOCYTES # (AUTO) 0.8 T/MM3 (0-0.8); MONOCYTES % (AUTO) 7.6 % (0-9.0); NEUTROPHILS #(AUTO)-ABSOLUTE 7.4 T/MM3 (1.8-7.7); NEUTROPHILS % (AUTO) 71.2 % (33-66); RED BLOOD COUNT 4.33 M/MM3 (4.00-5.20); WBC - WHITE BLOOD COUNT 10.3 T/MM3 (4.5-11.0)
[2016-09-08 05:33] LABS: ALBUMIN 3.6 G/DL (3.5-5.0); ALBUMIN/GLOBULIN RATIO 1.3 RATIO (1.1-2.2); ALKALINE PHOSPHATASE 68 U/L (38-126); ALT (SGPT) 41 U/L (9-52); ANION GAP 10 MEQ/L (5-15); AST (SGOT) 39 U/L (14-36); BUN/CREATININE RATIO 20 RATIO (6-26); CALCIUM 9.1 MG/DL (8.4-10.2); CHLORIDE 106 MEQ/L (98-107); CO2 - CARBON DIOXIDE 26 MEQ/L (22-30); CREATININE 0.8 MG/DL (0.7-1.2); GLOMERULAR FILTRATION RATE 72; GLUCOSE 166 MG/DL (65-110); POTASSIUM 3.9 MEQ/L (3.6-5); SODIUM 142 MEQ/L (134-144); TOTAL PROTEIN 6.3 G/DL (6.3-8.2)
[2016-09-08] MEDS: LEVOTHYROXINE 50 MCG TABLET PO SCH (05:36)
[2016-09-08] MEDS: MENTHOL COUGH DROPS (RICOLA) MM PRN (06:19)
--- NOTE | 2016-09-08 06:27 | NUR ---
SUMMARY PT SLEPT WELL THIS SHIFT. A&O X3. ABLE TO VERBALIZE NEEDS TO THE STAFFS. WAS GIVEN TYLENOL X 1 FOR HEADACHE AND RICOLA X 3 FOR COUGH. PT SAID RICOLA IS HELPING HER WITH HER COUGH. AMBULATE WITH NO ASSIST. EDUCATED ABOUT USE OF CALL LIGHT IF NEED BE AND PT SAFETY.
[2016-09-08] MEDS: ALBUTEROL/IPRATROPIUM INHAL. 2.5mg-0.5mg/3ml Neb. AEROSOL SCH ×2 (07:14→11:09)
[2016-09-08 07:27] VITALS: BP 130/70; PULSE 79; RESP 22; TEMP 96.8; O2SAT 98
[2016-09-08 08:00] VITALS: PULSE 79; RESP 22
[2016-09-08] MEDS ORDERED: PredniSONE 20 MG TABLET PO SCH (08:00)
[2016-09-08 08:31] VITALS: PULSE 79; RESP 22
[2016-09-08] MEDS: LOSARTAN 50 MG TABLET PO SCH (08:46)
[2016-09-08] MEDS: GLIMEPIRIDE 4 MG TABLET PO SCH (08:47)
[2016-09-08] MEDS: HYDROCHLOROTHIAZIDE 25 MG TABLET PO SCH (08:47)
[2016-09-08] MEDS: LACTOBACILLUS (15B cfu) CAPSULE PO SCH ×2 (08:48→12:29)
[2016-09-08] MEDS: CETIRIZINE 10 MG TABLET PO SCH (08:49)
[2016-09-08] MEDS: DICYCLOMINE 20 MG TABLET PO SCH (08:49)
[2016-09-08] MEDS: PANTOPRAZOLE 20 MG TABLET PO SCH (08:50)
[2016-09-08] MEDS: SITAGLIPTIN 100 MG TABLET PO SCH (08:50)
[2016-09-08] MEDS: FAMOTIDINE 20 MG TABLET PO SCH (08:51)
[2016-09-08] MEDS: CEFTRIAXONE 1 G in NORMAL SALINE 100 ML IV SCH (08:51)
[2016-09-08] MEDS: INSULIN LISPRO 100 UNIT/ML SQ PRN ×2 (10:15→16:05)
--- NOTE | 2016-09-08 10:29 | NUR ---
JUICE BOSE VISITED PT. CM EXPLAINED ROLE AND PROVIDED CONTACT INFORMATION. PT PLANS TO RETURN HOME POST HOSPITAL STAY. PT IS AWARE THAT SHE WILL HAVE IV ANTIBIOTICS OUT PATIENT FOR APPROXIMATELY A WEEK AND NEED TO GO TO [place] [id number] FOR INFUSION. PT VERBALIZES. PT IS AWARE TO CONTACT CM IF NEEDS ARISE.
[2016-09-08] MEDS ORDERED: PRED20TA PO (14:10)
[2016-09-08] MEDS ORDERED: CEFT1VIA15 IV (14:10)
--- NOTE | 2016-09-08 14:43 | DSPDOC ---
General Date Date DATE: 09/08/16 TIME: 14:19 Attending Physician Abril Arrieta MD Admitting Physician Abril Arrieta MD Consulting Physician Admitting Diagnosis 1. Pneumonia RLL Discharge Diagnosis 1. Pneumonia, posterior segment right lower lobe 2. Hypokalemia, resolved 3. Diabetes mellitus, type II with hyperglycemia secondary to steroids 4. Hypertension 5. Obstructive sleep apnea 6. Diarrhea Laboratory Laboratory Tests Test 09/07/16 04:29 09/07/16 07:06 09/07/16 10:42 09/07/16 14:28 White Blood Count 6.6T/MM3 (4.5-11.0) Red Blood Count 4.70M/MM3 (4.00-5.20) Hemoglobin 14.3GM/DL (12-16) Hematocrit 41.8% (36-46) Mean Corpuscular Volume 88.9UM3 (80-100) Mean Corpuscular Hemoglobin 30.4UUG (26-34) Mean Corpuscular Hemoglobin Concent 34.2GM/DL (31-37) RDW Standard Deviation 39.8FL (36.9-50.2) Platelet Count 323T/MM3 (130-400) Mean Platelet Volume 9.1UM3 (9.4-12.4) Immature Granulocyte % (Auto) % (0.0-0.5) Neutrophils (%) (Auto) % (33-66) Lymphocytes (%) (Auto) % (23-45) Monocytes (%) (Auto) % (0-9.0) Eosinophils (%) (Auto) % (0-4) Basophils (%) (Auto) % (0-2) Absolute Immature Granulocyte (auto T/MM3 (0.00-0.03) Absolute Neutrophils (auto) T/MM3 (1.8-7.7) Absolute Lymphocytes (auto) T/MM3 (1-4.8) Absolute Monocytes (auto) T/MM3 (0-0.8) Absolute Eosinophils (auto) T/MM3 (0-0.5) Absolute Basophils (auto) T/MM3 (0-0.2) Neutrophils % (Manual) 91.0% (33-66) Lymphocytes % (Manual) 9.0% (23-45) Absolute Neutrophils (Manual) 6.0T/MM3 (1.8-7.7) Lymphocytes # (Manual) 0.6T/MM3 (1-4.8) Anisocytosis 1+ Red Cell Morphology Comment Abnormal Turbidity < 20 (0-20) Sodium Level 139MEQ/L (134-144) Potassium Level 4.4MEQ/L (3.6-5) Chloride Level 104MEQ/L (98-107) Carbon Dioxide Level 23MEQ/L (22-30) Anion Gap 12MEQ/L (5-15) Blood Urea Nitrogen 18.0MG/DL (7-17) Creatinine 0.9MG/DL (0.7-1.2) Glomerular Filtration Rate Calc 62 BUN/Creatinine Ratio 20RATIO (6-26) Glucose Level 258MG/DL (65-110) Calculated Osmolality 279MOSM/KG (261-280) Calcium Level 8.8MG/DL (8.4-10.2) Icterus Index < 2 (0-7) Chemistry Specimen Hemolysis < 15 (0-25) Glucometer 227mg/dL (65-110) 259mg/dL (65-110) 270mg/dL (65-110) Test 09/07/16 19:50 09/08/16 04:07 09/08/16 06:15 09/08/16 10:03 Glucometer 242mg/dL (65-110) 135mg/dL (65-110) 200mg/dL (65-110) White Blood Count 10.3T/MM3 (4.5-11.0) Red Blood Count 4.33M/MM3 (4.00-5.20) Hemoglobin 13.4GM/DL (12-16) Hematocrit 39.1% (36-46) Mean Corpuscular Volume 90.3UM3 (80-100) Mean Corpuscular Hemoglobin 30.9UUG (26-34) Mean Corpuscular Hemoglobin Concent 34.3GM/DL (31-37) RDW Standard Deviation 41.1FL (36.9-50.2) Platelet Count 316T/MM3 (130-400) Mean Platelet Volume 9.7UM3 (9.4-12.4) Immature Granulocyte % (Auto) 0.3% (0.0-0.5) Neutrophils (%) (Auto) 71.2% (33-66) Lymphocytes (%) (Auto) 20.3% (23-45) Monocytes (%) (Auto) 7.6% (0-9.0) Eosinophils (%) (Auto) 0.4% (0-4) Basophils (%) (Auto) 0.2% (0-2) Absolute Immature Granulocyte (auto 0.03T/MM3 (0.00-0.03) Absolute Neutrophils (auto) 7.4T/MM3 (1.8-7.7) Absolute Lymphocytes (auto) 2.1T/MM3 (1-4.8) Absolute Monocytes (auto) 0.8T/MM3 (0-0.8) Absolute Eosinophils (auto) 0.0T/MM3 (0-0.5) Absolute Basophils (auto) 0.0T/MM3 (0-0.2) Turbidity < 20 (0-20) Sodium Level 142MEQ/L (134-144) Potassium Level 3.9MEQ/L (3.6-5) Chloride Level 106MEQ/L (98-107) Carbon Dioxide Level 26MEQ/L (22-30) Anion Gap 10MEQ/L (5-15) Blood Urea Nitrogen 16.0MG/DL (7-17) Creatinine 0.8MG/DL (0.7-1.2) Glomerular Filtration Rate Calc 72 BUN/Creatinine Ratio 20RATIO (6-26) Glucose Level 166MG/DL (65-110) Calculated Osmolality 278MOSM/KG (261-280) Calcium Level 9.1MG/DL (8.4-10.2) Total Bilirubin 0.50MG/DL (0.20-1.30) Icterus Index < 2 (0-7) Aspartate Amino Transf (AST/SGOT) 39U/L (14-36) Alanine Aminotransferase (ALT/SGPT) 41U/L (9-52) Alkaline Phosphatase 68U/L (38-126) Total Protein 6.3G/DL (6.3-8.2) Albumin 3.6G/DL (3.5-5.0) Globulin 2.7G/DL (2.4-3.6) Albumin/Globulin Ratio 1.3RATIO (1.1-2.2) Chemistry Specimen Hemolysis < 15 (0-25) White count on admission 8.5 with hemoglobin 15.2 Admission potassium 3.4, creatinine 1.0, troponin <0.012 Microbiology Microbiology Date/Time Source Procedure Growth Status 09/07/16 10:59 Sputum Expectorated Sputum Gram Stain - MANY GRAM POSITIVE COCCI IN CLUSTERS MODERATE GRAM POSITIVE COCCI IN CHAINS MODERATE GRAM POSITIVE COCCI IN PAIRS MODERATE GRAM POSITIVE RODS MODERATE GRAM NEGATIVE RODS MANY EPITHELIAL CELLS MODERATE WHITE BLOOD CELLS Resulted 09/07/16 10:59 Sputum Expectorated Sputum Sputum Culture - Preliminary CULTURE INITIATED - RESULTS PENDING Resulted C. difficile toxin negative Respiratory viral panel negative Radiology Chest x-ray on admission demonstrated minor infiltrate at the right lower lobe consistent with pneumonia. CTA of the chest on 09/06 was without evidence of pulmonary emboli; consolidation of the posterior segment of the right lower lobe present without evidence of mass or adenopathy. History of Present Illness Brittany Barry is a pleasant 66-year-old woman who has been sick since August 16. Her symptoms have included fever up to 104.7, sore throat, earache, chest felt tight, nonproductive cough, shortness of breath with coughing, weak, tired , achy. Her temperature has persisted for 2-1/2 weeks. She tried taking Tylenol cold x 1 week. She had mild nausea and vomited for only [address] Ramos on 08/20/16 - recommended OTC treatments, but she didn't improve and CXR was done on 08/23 and she was dx with RML pneumonia. She also had mildly elevated WBC at 12.7 and 81% segs on that day. Influenza screen was negative. She was started on Levaquin, and she completed the a 10-day course without much improvement. She was on started albuterol and also completed a course of Zithromax - and developed an itchy rash to her torso during that time. Symptoms persisted and then she was started on cefuroxime. She developed watery diarrhea on 09/05/16 - describes about 9 episodes since yesterday. Denies recent ill exposures. Pt was in [place] 08/08-08/14, enjoying a road trip to a few different places throughout the state. Denies leg swelling. [place], and she has a pet cat, though she doesn't have anything to do with it, and she also has a pet dog. Shots are up to date. They have a few cows and calves, but she isn't involved with their care. She denies any travel outside of the country. She contacted Dr. Ramos on 09/06/16, reporting that her symptoms have not improved. She was asked to present to the emergency department. Chest x-ray showed right lower lobe infiltrate. Her white count was normal at 8.5. Chemistries were fairly unremarkable with the exception of a mildly low potassium at 3.4. Troponin was negative. Viral panel was negative. The hospitalist service was contacted, and the patient was admitted to observation status. Hospital Course Mrs. Barry was hospitalized on 09/06 after outpatient treatment for right lower lobe pneumonia with Levaquin followed by azithromycin and most recently cefuroxime. Patient reports that the fevers resolved with azithromycin but she' s continued to have severe and prolonged coughing spells with minimal sputum production and persistent radiographic findings in the right lower lobe. Diarrhea developed with cefuroxime and she was hospitalized for further evaluation and consideration of alternative treatments. The patient was not hypoxic on admission nor was there evidence of leukocytosis or fever. Respiratory viral panel was negative as was C. difficile toxin. Cough was initially treated symptomatically with breathing treatments and oral prednisone. CTA was obtained demonstrating no evidence of pulmonary emboli, adenopathy, or pulmonary mass but there was a dense area of consolidation in the posterior right lower lobe. The patient was started on Rocephin 1 g IV daily on 09/07. Midline catheter was placed on 09/08 to permit continued IV antibiotics in the outpatient infusion center. One-week course is anticipated after imaging can be reevaluated. If there is persistent infiltrate or symptoms further evaluation by pulmonary and consideration of bronchoscopy may need to be entertained. Sputum sample was induced by respiratory therapy with hypertonic saline administration on 09/07 with sample demonstrating mixed bacterial veronica. Final culture report pending at discharge. Additionally strep urine antigen and legionella urine antigens are pending at discharge. Blood sugars were moderately elevated throughout the hospitalization following initiation of prednisone; given short-term use of prednisone her oral diabetes regimen was not altered. Patient described probable vaginal candidiasis on admission and was treated with Diflucan 1 on the date of admission. Mild hypokalemia present on admission, supplemented with stabilization. Stool sample was negative for C. difficile on admission. Subsequently frequency of stools improved although she continued to have several bowel movements daily and she indicated that stools remained loose. Brittany reported that she tends to have a nervous colon and when she's anxious she has diarrhea. On 09/08 patient indicated that she had slept well but continued to have episodic cough and minor exertional dyspnea. She has mild lightheadedness intermittently but has been able to ambulate without assistance. Respirations are nonlabored and oxygen saturation 98% on room air. Air flow is good and breath sounds are clear with only minimal crackles at the right base. She's felt stable for discharge at this time following placement of a midline catheter to permit outpatient antibiotics as noted above. Discharge plans were reviewed with Dr. Ramos and the patient's . >30 minutes spent on patient care and discharge care coordination today on the date of discharge. -- Problems: (1) Pneumonia Status: Acute Assessment & Plan: Consolidation of the posterior segment of the right lower lobe on CT (2) Hypokalemia Status: Resolved Assessment & Plan: POA (3) Anxiety Status: Chronic (4) Hypothyroidism Status: Chronic (5) Uterine cancer Status: Chronic (6) GERD (gastroesophageal reflux disease) Status: Chronic (7) HTN (hypertension) Status: Chronic (8) Type 2 diabetes mellitus Status: Chronic (9) Mild obstructive sleep apnea Status: Chronic (10) Obesity (BMI 30.0-34.9) Status: Chronic (11) Diarrhea Status: Resolved Code Status Full Code Home Meds Active Scripts Ceftriaxone Sodium (Ceftriaxone) 1 G/Vial Bag, 1 G IV d for pneumonia for 5 Days Prov:ABRIL ARRIETA MD 09/08/16 Prednisone (Prednisone) 20 Mg Tablet, 40 MG PO WB for 2 Days, #4 TAB Prov:ABRIL ARRIETA MD 09/08/16 Reported Medications Guaifen/Phenyleph/Acetaminophn (Tylenol Cold Head Congest Cplt) 1 Each Tablet, 1 TAB PO PRN Y for COLD SYMPTOMS 09/06/16 Cetirizine HCl (Cetirizine HCl) 10 Mg Tablet, 10 MG PO DAILY, TAB 09/06/16 Sitagliptin Phosphate (Januvia) 100 Mg Tablet, 100 MG PO DAILY, TAB 09/06/16 Albuterol Sulfate (Proair HFA 90 mcg/actuation) 8.5 Gm Hfa.aer.ad, 1 PUFF INH Q6H Y for WHEEZING, INHALER 09/06/16 Dicyclomine HCl (Dicyclomine HCl) 20 Mg Tablet, 20 MG PO BID, #60 TAB 11 Refills 09/06/16 Hydrochlorothiazide (Hydrochlorothiazide) 25 Mg Tablet, 25 MG PO DAILY 09/06/16 Glimepiride (Glimepiride) 4 Mg Tablet, 4 MG PO DAILY, TAB BEST TAKEN WITH BREAKFAST. 09/06/16 Promethazine HCl (Promethazine HCl) 6.25 Mg/5 Ml Syrup, 5 ML PO Q6H 09/06/16 Lactobacillus Rhamnosus GG (Culturelle) 1 Each Capsule, 1 CAP PO DAILY 09/06/16 Citalopram Hydrobromide (Celexa) 20 Mg Tablet, 20 MG PO DAILY 08/18/15 Esomeprazole Mag Trihydrate (Nexium) 20 Mg Capsule, 20 MG PO BID 08/18/15 Losartan Potassium (Cozaar) 50 Mg Tablet, 50 MG PO DAILY 09/21/10 Levothyroxine Sodium (Levothyroxine Sodium) 50 Mcg Tablet, 50 MCG PO DAILY 07/15/09 Discontinued Reported Medications Cefuroxime Axetil (Cefuroxime) 500 Mg Tablet, 500 MG PO BID 09/06/16 Face to Face Encounter I met with patient on the day of dismissal and discussed follow up appointments , medications, and safety plan. Discharge Disposition home Copies To 1: TERESA RAMOS MD Documentation Requirements Pneumonia Significance to pneumonia: Unable to Determine Aspiration Pneumonia: Unable to determine BMI Low or High Assoc. dx for low or high BMI: Obesity 30-34.9 Diabetes Diabetes Type: Type 2 Diabetes Is Diabetes Contolled?: Uncontolled Related to Diabetes: Not related to ABRIL ARRIETA MD Sep 08, 2016 14:31
[2016-09-08 15:24] LABS: BLOOD, URINE NEGATIVE (NEGATIVE); COLOR,URINE YELLOW (YELLOW); LEUKOCYTE ESTERASE ,URINE NEGATIVE (NEGATIVE); NITRITE,URINE NEGATIVE (NEGATIVE); UROBILINOGEN,URINE 0.2 EU/DL (NORMAL)
--- NOTE | 2016-09-08 16:35 | NUR ---
DISCHARGE NOTE PT DISCHARGED WITH MIDLINE IN RIGHT UPPER ARM FOR OUTPATIENT ANTIBIOTIC THERAPY. SHE WAS EDUCATED ON IV THERAPY INFUSION, AND VERBALIZED AN UNDERSTANDING OF WHEN TO COME TO THE HOSPITAL TO RECEIVE ANTIBIOTIC TREATMENT. PT WAS EDUCATED ON HOW TO CARE FOR HER MIDLINE, AND S/S TO MONITOR FOR. PT'S WAS HER RIDE AND SHE WAS DISCHARGED HOME. PT AMBULATED WITH NO USE OF ASSISTIVE DEVICES TO MAIN HOSPITAL ENTRANCE. UA WAS COLLECTED PRIOR TO DISCHARGE. SCRIPTS WERE CALLED IN TO PT PREFERRED PHARMACY, AND PATIENT WAS GOING TO PICK THEM UP ON HER OWN. PT WAS EDUCATED ON NEW MEDS, CONTINUING MEDS, AND MEDICATIONS THAT WERE STOPPED, AND VERBALIZED AN UNDERSTANDING. PT WAS TO FOLLOW UP WITH HER PRIMARY CARE PHYSICIAN.
[2016-09-08] MEDS ORDERED: DICYCLOMINE 20 MG TABLET PO SCH (17:00)
== END 2016-09-08 16:08 | disposition home or self-care (01) | DRG 195 ==
LOC: ED 12:35 → EDHOLD 14:23 → MED 14:45 → OBSVTOIN 16:18
PROVIDERS: ADMIT Internal Medicine; ATTEND Internal Medicine
DX: J18.9 Pneumonia, unspecified organism (principal); E87.6 Hypokalemia; E11.65 Type 2 diabetes mellitus with hyperglycemia; I10 Essential (primary) hypertension; R19.7 Diarrhea, unspecified; F41.9 Anxiety disorder, unspecified; E03.9 Hypothyroidism, unspecified; K21.9 Gastro-esophageal reflux disease without esophagitis; G47.33 Obstructive sleep apnea (adult) (pediatric); E66.9 Obesity, unspecified; Z68.34 Body mass index [BMI] 34.0-34.9, adult
CPT/HCPCS: 36415; 80048; 80053; 81003; 82948; 84484; 85025; 87070; 87205; 87449; 87486; 87493; 87581; 87633; 87798; 93005; 94640; 94664; 94667; 94668; 94762; 96360; 99218